=== PATIENT | female | born 1975 ===

== ENCOUNTER 2020-11-11 10:44 | Outpatient (REF) | payer OTHER, SELFPAY | END 2020-11-11 10:45 | disposition home or self-care (01) | LOC: HO.LAB 10:44 | PROVIDERS: PCP Family Medicine; Visit Provider Internal Medicine | DX: Z20.828 Contact with and (suspected) exposure to other viral communicable diseases (principal) | CPT/HCPCS: C9803; U0003 ==

== ENCOUNTER 2020-11-25 11:44 | Outpatient (REF) | payer OTHER, SELFPAY | END 2020-11-25 11:45 | disposition home or self-care (01) | LOC: HO.LAB 11:44 | PROVIDERS: PCP Family Medicine; Visit Provider Internal Medicine | DX: Z20.828 Contact with and (suspected) exposure to other viral communicable diseases (principal) | CPT/HCPCS: C9803; U0003 ==

== ENCOUNTER 2021-04-16 10:16 | Outpatient (REF) | payer OTHER, SELFPAY ==
--- NOTE | ~2021-04-16 | XR_ITS ---
EXAMINATION: XR LUMBOSACRAL SPINE WITH OBLIQUES CLINICAL INFORMATION: Low back pain. COMPARISON: Scoliosis series 03/31/2007 TECHNIQUE: Lumbar spine is imaged in 5 views: AP, lateral, lateral view coned to lumbosacral junction, and bilateral oblique. FINDINGS: There is normal lumbar segmentation with 5 [id number] lumbar vertebrae of normal height and normal lumbar lordosis. There is a dextrocurvature lumbar spine, also noted on prior radiographs 2006. There is no lumbar vertebral compression, spondylolisthesis, destructive process, or focal disc narrowing. The oblique views show no spondylolysis. There is mild inferior spurring left SI joint. Otherwise, SI joints and visualized sacrum are unremarkable. XR/XR lumbar spine 4V min IMPRESSION: 1. Dextrocurvature lumbar spine similar to prior radiographs 2006. 2. No lumbar vertebral compression, spondylolisthesis, spondylolysis, or disc narrowing. 3. Inferior spurring left SI joint. No joint narrowing or subchondral sclerosis.
== END 2021-04-16 10:17 | disposition home or self-care (01) ==
LOC: HO.XRAY 10:16
PROVIDERS: PCP Family Medicine; Visit Provider Family Medicine
DX: M54.5 Low back pain (principal)
CPT/HCPCS: 72110

== ENCOUNTER 2021-09-26 13:55 | Outpatient (REF) | payer OTHER, SELFPAY ==
--- NOTE | ~2021-09-26 | MM_ITS ---
EXAMINATION: MM SCREENING DIGITAL BREAST TOMOSYNTHESIS, BILATERAL CLINICAL INFORMATION: Screening. Asymptomatic. The lifetime risk of breast cancer based on the Tyrer-Cuzick Model is 23%. COMPARISON: Mammography: 08/23/2020, 02/16/2020, 08/17/2019, 02/13/2019, 08/11/2018, 08/03/2018 TECHNIQUE: Digital breast tomosynthesis is performed in both the craniocaudal and mediolateral oblique views along with computer-aided detection (CAD). Synthesized 2D images are generated from the tomosynthesis. FINDINGS: The breasts are heterogeneously dense, which may obscure small masses (ACR BI-RADS breast composition Category c). Parenchymal pattern is similar to prior studies. Breast tissue composition borders on average fibroglandular. No developing density or interval mass or architectural abnormality. No abnormal calcifications. Biopsy clip marker again noted anterior 1:00 left breast. The axilla and skin contours are unremarkable. MM/MM tomosynthesis screening BI IMPRESSION: No mammographic evidence of malignancy. ASSESSMENT: BI-RADS 1: Negative RECOMMENDATION: 1. Routine annual mammography screening. 2. The lifetime risk of breast cancer based on the Tyrer-Cuzick Model is 23%. Additional annual adjunct screening with breast MRI may be of benefit in women with a risk score of 20% or greater. This patient's information was entered into a reminder system with a target due date for their next mammogram.
== END 2021-09-26 13:56 | disposition home or self-care (01) ==
LOC: HO.MAMMO 13:55
PROVIDERS: PCP Family Medicine; Visit Provider Family Medicine
DX: Z12.31 Encounter for screening mammogram for malignant neoplasm of breast (principal)
CPT/HCPCS: 77063; 77067

== ENCOUNTER 2021-12-16 08:59 | Outpatient (REF) | payer OTHER, SELFPAY ==
[2021-12-16 09:40] LABS: COVID-19 Test Negative (Negative); IDNOW Serial# 16C4AD1C
== END 2021-12-16 09:00 | disposition home or self-care (01) ==
LOC: HO.LAB 08:59
PROVIDERS: Visit Provider Internal Medicine
DX: Z20.822 Contact with and (suspected) exposure to COVID-19 (principal)
CPT/HCPCS: 87635; C9803

== ENCOUNTER 2021-12-31 10:34 | Outpatient (REF) | payer OTHER, SELFPAY ==
[2021-12-31 11:02] LABS: COVID-19 Test Negative (Negative)
== END 2021-12-31 10:35 | disposition home or self-care (01) ==
LOC: HO.LAB 10:34
PROVIDERS: Visit Provider Internal Medicine
DX: Z20.822 Contact with and (suspected) exposure to COVID-19 (principal)
CPT/HCPCS: 87635; C9803

== ENCOUNTER 2022-05-05 10:45 | Outpatient (REF) | payer OTHER, SELFPAY ==
--- NOTE | ~2022-05-05 | XR_ITS ---
EXAMINATION: XR LEFT SHOULDER XR CERVICAL XR THORACIC SPINE CLINICAL INFORMATION: Pain. COMPARISON: None. TECHNIQUE: Left shoulder 4 views. Cervical spine 5 views. Thoracic spine 3 views. FINDINGS: Shoulder: There is no visible acute fracture, dislocation or subluxation. There is a lateral acromial enthesophyte. The glenohumeral joint space is maintained normal. No loose bodies seen. The soft tissues are normal. Dorsal Spine: There is mild S-shaped scoliosis of the dorsolumbar spine. There is mild loss of disc height at all thoracic disc levels. No visible acute fracture or dislocation seen. No lytic or sclerotic process seen. The paravertebral soft tissues are normal. Cervical Spine: There is normal cervical lordosis. There is loss of C5-C6 disc height with ventral and posterior spondylosis. The rest of the disc heights are maintained normal. There is mild uncovertebral hypertrophic changes on the left at C4-C5, C5-C6 and C6-C7 disc levels minimally narrowing the neural foramina with mild right C5-C6 narrowing of neural foramina as well. No aggressive lytic or sclerotic process seen. The prevertebral soft tissues are normal. XR/XR thoracic spine 3V IMPRESSION: Mild lateral acromial spurring. Otherwise, unremarkable left shoulder exam. Thoracal lumbar scoliosis without any acute fracture or dislocation. There are mild degenerative disc changes at all thoracic disc levels. Mild bilateral uncovertebral hypertrophic changes resulting in neural foraminal narrowing as described above. Mild degenerative disc changes with ventral spondylosis C5-C6 disc level.
--- NOTE | ~2022-05-05 | XR_ITS ---
EXAMINATION: XR LEFT SHOULDER XR CERVICAL XR THORACIC SPINE CLINICAL INFORMATION: Pain. COMPARISON: None. TECHNIQUE: Left shoulder 4 views. Cervical spine 5 views. Thoracic spine 3 views. FINDINGS: Shoulder: There is no visible acute fracture, dislocation or subluxation. There is a lateral acromial enthesophyte. The glenohumeral joint space is maintained normal. No loose bodies seen. The soft tissues are normal. Dorsal Spine: There is mild S-shaped scoliosis of the dorsolumbar spine. There is mild loss of disc height at all thoracic disc levels. No visible acute fracture or dislocation seen. No lytic or sclerotic process seen. The paravertebral soft tissues are normal. Cervical Spine: There is normal cervical lordosis. There is loss of C5-C6 disc height with ventral and posterior spondylosis. The rest of the disc heights are maintained normal. There is mild uncovertebral hypertrophic changes on the left at C4-C5, C5-C6 and C6-C7 disc levels minimally narrowing the neural foramina with mild right C5-C6 narrowing of neural foramina as well. No aggressive lytic or sclerotic process seen. The prevertebral soft tissues are normal. XR/XR cervical spine min 6V IMPRESSION: Mild lateral acromial spurring. Otherwise, unremarkable left shoulder exam. Thoracal lumbar scoliosis without any acute fracture or dislocation. There are mild degenerative disc changes at all thoracic disc levels. Mild bilateral uncovertebral hypertrophic changes resulting in neural foraminal narrowing as described above. Mild degenerative disc changes with ventral spondylosis C5-C6 disc level.
--- NOTE | ~2022-05-05 | XR_ITS ---
EXAMINATION: XR LEFT SHOULDER XR CERVICAL XR THORACIC SPINE CLINICAL INFORMATION: Pain. COMPARISON: None. TECHNIQUE: Left shoulder 4 views. Cervical spine 5 views. Thoracic spine 3 views. FINDINGS: Shoulder: There is no visible acute fracture, dislocation or subluxation. There is a lateral acromial enthesophyte. The glenohumeral joint space is maintained normal. No loose bodies seen. The soft tissues are normal. Dorsal Spine: There is mild S-shaped scoliosis of the dorsolumbar spine. There is mild loss of disc height at all thoracic disc levels. No visible acute fracture or dislocation seen. No lytic or sclerotic process seen. The paravertebral soft tissues are normal. Cervical Spine: There is normal cervical lordosis. There is loss of C5-C6 disc height with ventral and posterior spondylosis. The rest of the disc heights are maintained normal. There is mild uncovertebral hypertrophic changes on the left at C4-C5, C5-C6 and C6-C7 disc levels minimally narrowing the neural foramina with mild right C5-C6 narrowing of neural foramina as well. No aggressive lytic or sclerotic process seen. The prevertebral soft tissues are normal. XR/XR shoulder LT min 2V IMPRESSION: Mild lateral acromial spurring. Otherwise, unremarkable left shoulder exam. Thoracal lumbar scoliosis without any acute fracture or dislocation. There are mild degenerative disc changes at all thoracic disc levels. Mild bilateral uncovertebral hypertrophic changes resulting in neural foraminal narrowing as described above. Mild degenerative disc changes with ventral spondylosis C5-C6 disc level.
== END 2022-05-05 10:46 | disposition home or self-care (01) ==
LOC: HO.XRAY 10:45
PROVIDERS: Absent Provider Family Medicine; PCP Family Medicine; Visit Provider Emergency Medicine
DX: M25.512 Pain in left shoulder (principal); M54.2 Cervicalgia; M54.9 Dorsalgia, unspecified
CPT/HCPCS: 72052; 72072; 73030

== ENCOUNTER 2022-06-30 08:18 | Outpatient (REF) | payer OTHER, SELFPAY ==
[2022-06-30 08:59] LABS: Hematocrit 40.3 % (37.0-47.0); Hemoglobin 12.9 g/dl (12.0-16.0); Mean Corpuscular Hemoglobin 26.2 pg (27.0-33.0); Mean Corpuscular Volume 81.7 fL (80.0-98.0); Mean Platelet Volume 9.3 fL (9.4-12.3); Platelet Count 260 X10*3/uL (160-400); Red Blood Count 4.93 X10*6/uL (4.20-5.50); Red Cell Distribution Width 13.5 % (11.0-16.0); White Blood Count 6.4 X10*3/uL (4.8-10.8)
[2022-06-30 09:24] LABS: Alanine Aminotransferase 9 U/L (0-31); Albumin Level 4.3 g/dL (3.5-5.0); Alkaline Phosphatase 71 U/L (39-117); Anion Gap 12 (12-20); Aspartate Amino Transferase 15 U/L (5-31); Bilirubin Total 0.6 mg/dL (0.0-1.0); Blood Urea Nitrogen 16 mg/dL (9-16); Calcium 9.3 mg/dL (8.4-10.2); Carbon Dioxide 26 mmol/L (22-29); Chloride 106 mmol/L (96-108); Cholesterol 230 mg/dL; Estimated Glomerular Filt Rate > 60; Glucose Random 93 mg/dL (60-115); HDL Cholesterol 60 mg/dL; LDL Cholesterol Calculated 150 mg/dl; Potassium 4.9 mmol/L (3.3-5.1); Sodium 139 mmol/L (135-145); Total Protein 7.7 g/dL (6.5-8.0); Triglycerides 103 mg/dL
[2022-06-30 09:42] LABS: HIV AB/AG Nonreactive (Nonreactive); HIV Num 1 0.14 S/CO (0.00-0.99)
[2022-06-30 09:49] LABS: TSH reflex Free T4 1.93 uIU/mL (0.32-4.0); Vitamin D 25-OH Total 21.3 ng/mL (>30)
== END 2022-06-30 08:19 | disposition home or self-care (01) ==
LOC: HO.LAB 08:18
PROVIDERS: PCP Family Medicine; Visit Provider Family Medicine
DX: Z00.00 Encounter for general adult medical examination without abnormal findings (principal); Z11.4 Encounter for screening for human immunodeficiency virus [HIV]; E78.5 Hyperlipidemia, unspecified; M54.2 Cervicalgia; R87.820 Cervical low risk human papillomavirus (HPV) DNA test positive; Z87.898 Personal history of other specified conditions
CPT/HCPCS: 36415; 80053; 80061; 82306; 84443; 85027; 87389

== ENCOUNTER → 2022-08-24 14:58 | Outpatient (BNVA) | payer OTHER, SELFPAY | PROVIDERS: PCP Family Medicine; Visit Provider Nurse Practitioner Family | DX: Z01.818 Encounter for other preprocedural examination (principal) | CPT/HCPCS: 99202 ==

== ENCOUNTER 2022-09-28 14:12 | Outpatient (REF) | payer OTHER, SELFPAY ==
--- NOTE | ~2022-09-28 | MM_ITS ---
EXAMINATION: MM SCREENING DIGITAL BREAST TOMOSYNTHESIS, BILATERAL CLINICAL INFORMATION: Screening. Asymptomatic. The lifetime risk of breast cancer based on the Tyrer-Cuzick Model is 9%. COMPARISON: Mammography: 09/26/2021, 08/23/2020, 02/16/2020, 08/17/2019 TECHNIQUE: Digital breast tomosynthesis is performed in both the craniocaudal and mediolateral oblique views along with computer-aided detection (CAD). Synthesized 2D images are generated from the tomosynthesis. FINDINGS: The breasts are heterogeneously dense, which may obscure small masses (ACR BI-RADS breast composition Category c). Breast tissue composition borders on average fibroglandular. There are no significant masses, abnormal calcifications, or other abnormalities. Parenchymal pattern is similar to prior studies. No developing density or architectural abnormality. The axilla are unremarkable. MM/MM tomosynthesis screening BI IMPRESSION: No mammographic evidence of malignancy. ASSESSMENT: BI-RADS 1: Negative RECOMMENDATION: Routine annual mammography screening. This patient's information was entered into a reminder system with a target due date for their next mammogram.
== END 2022-09-28 14:13 | disposition home or self-care (01) ==
LOC: HO.MAMMO 14:12
PROVIDERS: PCP Family Medicine; Visit Provider Family Medicine
DX: Z12.31 Encounter for screening mammogram for malignant neoplasm of breast (principal)
CPT/HCPCS: 77063; 77067

== ENCOUNTER 2023-02-05 08:31 | Day surgery (SDC) | payer OTHER, SELFPAY ==
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
[2023-02-05 09:49] VITALS: BMI 26.2
[2023-02-05 09:49] LABS: UPreg QC Valid YES; Urine Pregnancy NEGATIVE (NEGATIVE)
--- NOTE | 2023-02-05 09:51 | MHC.SHP ---
Pre-Procedural Eval Section A Date of Service: 02/05/23 The patient is an INPATIENT: No The History & Physical has been completed within 30 days and I have reviewed it.: No Section B Chief Complaint: screening Details of Present Illness: Colon cancer screening Relevant Family History (Specify if Yes): No Relevant Social History: None Present Medications: see Short Stay Collaborative assessment Medical History: Significant History (Hyperlipidemia) History of Previous Operations: No relevant previous surgery Allergies: Allergies Allergy/AdvReac Type Severity Reaction Status Date / Time No Known Allergies Allergy Verified 02/02/23 16:28 Review of Systems Sugical H&P ROS: Negative: Constitution, Cardiovascular, Respiratory and Gastrointestinal Exam Surgical H&P Exam: Normal: Heart, Normal: Lungs, Normal: Extremities and Normal: Abdomen Plan Diagnosis/Plan: Unchanged I have reviewed the history and physical and performed a pertinent physical examination on my patient. No changes have occurred unless specified. Time Spent With Patient Time: Total time managing care of this patient today ____ minutes.
[2023-02-05 10:04] VITALS: BP 139/88; PULSE 79; RESP 16; TEMP 36.8; O2SAT 95
[2023-02-05] MEDS: Lactated Ringers 1,000 ML 100 ML IVCONT (10:05)
--- NOTE | 2023-02-05 10:33 | PM.OP ---
Brief Operative Note Date of Service: 02/05/23 Pre-op diagnosis: Colon cancer screening Post-op diagnosis: other (COLON POLYP, DIVERTICULOSIS) Procedure: COLONOSCOPY TILL CECUM WITH BIOPSY Surgeon: Stephanie Maya MD Anesthesia: MAC Was an Supervisor Sound Technician used for this Procedure?: Yes Supervisor Sound Technician: Patty Nixon Estimated blood loss (mL): 0 Pathology: other (a. colon polyp) Condition: stable Disposition: PACU
--- NOTE | 2023-02-05 10:34 | P.OP_ITS ---
Operative Note Operative Note Date of Service: 02/05/23 Narrative: COLONOSCOPY TILL CECUM WITH BIOPSIES Indication:? Colon cancer screening Endoscopist:? Stephanie Maya MD Anesthesia Provider:?Dr De La Garza Anesthesia type:?MAC Consent: Indications for the procedure and potential complications of bleeding, perforation, reaction to medications and missed diagnosis were discussed with the patient and informed consent was obtained. Instrument: Olympus PCF H 190 L variable stiffness pediatric colonoscope Monitoring: Vital signs and clinical assessment, intermittent blood pressure monitoring, continuous EKG monitoring, Pulse oximetry and Carbon Dioxide monitoring were done throughout the procedure. Please see anesthesia flowsheet. Colon withdrawl time was 10 minutes. Procedure: The patient was placed in the left lateral decubitis position and pre-procedure medications were administered. After a digital rectal examination of the ano-rectum, the video colonoscope was inserted into the rectum and advanced through the colon to the cecum. The colonoscope was slowly withdrawn in a retrograde panoramic fashion and the colon mucosa was carefully examined including a retroflexed view of the rectum. Findings and interventions are described below. Procedure Difficulty: Without difficulty Findings: Terminal Ileum: Not evaluated Cecum: Normal Ascending Colon: Normal Transverse Colon: Normal Descending Colon: Normal Sigmoid Colon: Moderate diverticulosis Rectum: A 3-4 mm diminutive appearing polyp - removed with a cold biopsy Ano-rectum: Small internal hemorrhoids Colon preparation: Excellent Impression and Post Procedure Diagnosis: Colonoscopy Findings: One small polyp removed Moderate diverticulosis seen in the sigmoid colon Plan: Await pathology results Patient has an appointment on 02/19/23 in the GI Clinic with Matilda Sommers FNP- [facility]. Repeat Colonoscopy interval based on path results - in 5 years if polyps are adenomatous and 10 years if polyps are hyperplastic. Above findings were reviewed with the patient and colon polyps and diverticulosis handouts were given in the discharge area
[2023-02-05 11:10] VITALS: BP 113/69; PULSE 65; RESP 17; TEMP 36.2; O2SAT 100
[2023-02-05 11:27] VITALS: BP 128/76; PULSE 61; RESP 15; TEMP 36.6; O2SAT 100
== END 2023-02-05 12:23 | disposition home or self-care (01) ==
PROVIDERS: Nurse Practitioner; PCP Family Medicine; Visit Provider Internal Medicine Gastroenterology
PROC: 0DJD8ZZ Inspection of Lower Intestinal Tract, Via Natural or Artificial Opening Endoscopic (ICD-10-PCS; CPT 45378; principal; 2023-02-05 10:10)
DX: Z12.11 Encounter for screening for malignant neoplasm of colon (principal); K62.1 Rectal polyp; K57.30 Diverticulosis of large intestine without perforation or abscess without bleeding; K64.8 Other hemorrhoids; E78.5 Hyperlipidemia, unspecified; Z79.899 Other long term (current) drug therapy
CPT/HCPCS: 45380; 81025; 88305

== ENCOUNTER 2023-08-04 08:26 | Outpatient (REF) | payer OTHER, SELFPAY ==
[2023-08-04 08:58] LABS: MANUAL DIFF FLAG NO
[2023-08-04 09:35] LABS: Basophils Percent Auto 0.7 % (0-2); Eosinophils Absolute Auto 0.1 X10*3/uL (0.0-0.4); Eosinophils Percent Auto 1.7 % (0-4); Hemoglobin 12.6 g/dl (12.0-16.0); Imm Gran Abs Auto 0.01 X10*3/uL (0.00-0.03); Imm Gran Pct Auto 0.2 % (0.0-0.4); Lymphocytes Absolute Auto 1.6 X10*3/uL (1.2-4.9); Lymphocytes Percent Auto 28.6 % (20-40); Mean Corpuscular HGB Conc 31.5 g/dl (31.0-35.0); Mean Corpuscular Hemoglobin 26.3 pg (27.0-33.0); Mean Corpuscular Volume 83.5 fL (80.0-98.0); Mean Platelet Volume 9.3 fL (9.4-12.3); Monocytes Absolute Auto 0.3 X10*3/uL (0.1-1.2); Monocytes Percent Auto 5.8 % (2-11); Neutrophils Absolute Auto 3.6 x10*3/uL (2.0-8.3); Platelet Count 266 X10*3/uL (160-400); Red Blood Count 4.79 X10*6/uL (4.20-5.50); White Blood Count 5.7 X10*3/uL (4.8-10.8)
[2023-08-04 10:39] LABS: Alanine Aminotransferase 11 U/L (0-31); Albumin Level 4.1 g/dL (3.5-5.0); Alkaline Phosphatase 82 U/L (39-117); Anion Gap 9 (12-20); Aspartate Amino Transferase 16 U/L (5-31); Bilirubin Direct 0.1 mg/dL (0.0-0.5); Bilirubin Total 0.4 mg/dL (0.0-1.0); Blood Urea Nitrogen 15 mg/dL (9-16); Calcium 9.7 mg/dL (8.4-10.2); Carbon Dioxide 29 mmol/L (22-29); Chloride 106 mmol/L (96-108); Cholesterol 238 mg/dL (<200); Estimated Glomerular Filt Rate > 60; Glucose Random 91 mg/dL (60-115); HDL Cholesterol 61 mg/dL (>40); LDL Cholesterol Calculated 159 mg/dL (<100); Potassium 4.5 mmol/L (3.3-5.1); Sodium 139 mmol/L (135-145); TSH reflex Free T4 1.22 uIU/mL (0.32-4.0); Total Protein 7.6 g/dL (6.5-8.0); Triglycerides 90 mg/dL (<150)
[2023-08-04 10:41] LABS: ~HepC Num1 0.08 S/CO (0.00-0.79); ~Hepatitis C Antibody Nonreactive (Nonreactive)
[2023-08-09 00:54] LABS: VITAMIN D (1,25 OH) D3 58 pg/mL; Vit D (1,25-Dihydroxy) Total 58 pg/mL (18-72); Vitamin D (1,25 OH) D2 <8 pg/mL
== END 2023-08-04 08:27 | disposition home or self-care (01) ==
LOC: HO.LAB 08:26
PROVIDERS: PCP Family Medicine; Visit Provider Family Medicine
DX: R53.83 Other fatigue (principal); E78.5 Hyperlipidemia, unspecified
CPT/HCPCS: 36415; 80048; 80061; 80076; 82652; 84443; 85025; 86803

== ENCOUNTER 2023-09-30 07:50 | Outpatient (REF) | payer OTHER, SELFPAY ==
--- NOTE | ~2023-09-30 | MM_ITS ---
EXAMINATION: MM SCREENING DIGITAL BREAST TOMOSYNTHESIS, BILATERAL CLINICAL INFORMATION: Screening. Asymptomatic. COMPARISON: Mammography: This study is compared with prior exams dating back to 2019. TECHNIQUE: Digital breast tomosynthesis is performed in both the craniocaudal and mediolateral oblique views along with computer-aided detection (CAD). Synthesized 2D images are generated from the tomosynthesis. FINDINGS: The breasts are heterogeneously dense, which may obscure small masses (ACR BI-RADS breast composition Category c). There are no significant masses, abnormal calcifications, or other abnormalities. There is a tissue marker in the upper outer quadrant of the left breast from prior benign percutaneous biopsy. MM/MM tomosynthesis screening BI IMPRESSION: No mammographic evidence of malignancy. ASSESSMENT: BI-RADS BI-RADS 2 - Benign Findings RECOMMENDATION: Routine annual mammography screening. 1 year F/U This examination should not preclude the clinical evaluation of a suspicious palpable abnormality. This patient's information was entered into a reminder system with a target due date for their next mammogram.
== END 2023-09-30 07:51 | disposition home or self-care (01) ==
LOC: HO.MAMMO 07:50
PROVIDERS: PCP Family Medicine; Visit Provider Family Medicine
DX: Z12.31 Encounter for screening mammogram for malignant neoplasm of breast (principal)
CPT/HCPCS: 77063; 77067

== ENCOUNTER → 2023-09-30 08:30 | Outpatient (BNV) | payer OTHER, SELFPAY | PROVIDERS: PCP Family Medicine; Visit Provider Radiology Diagnostic Radiology | DX: Z12.31 Encounter for screening mammogram for malignant neoplasm of breast (principal) | CPT/HCPCS: 77063; 77067 ==

== ENCOUNTER 2024-02-17 11:09 | Outpatient (REF) | payer OTHER, SELFPAY ==
[2024-02-19 23:04] LABS: TS Negative Control Passed; TS Panel A 0; TS Panel B 0; TS Positive Control Passed; TSpotTB Negative (Negative)
== END 2024-02-17 11:10 | disposition home or self-care (01) ==
LOC: HO.HHCL 11:09
PROVIDERS: Visit Provider Family Medicine
DX: Z11.1 Encounter for screening for respiratory tuberculosis (principal)
CPT/HCPCS: 36415; 86481

== ENCOUNTER 2024-07-21 08:04 | Emergency (ER) | payer OTHER, SELFPAY ==
--- NOTE | ~2024-07-21 | XR_ITS ---
EXAMINATION: XR CHEST CLINICAL INFORMATION: Dizziness. COMPARISON: None available. TECHNIQUE: Frontal view of the chest was obtained. FINDINGS: No focal consolidation, pleural effusion or pneumothorax. Normal appearance of the cardiomediastinal silhouette. Mild S-shaped scoliosis of the thoracolumbar spine with chronic appearing deformity of the right-sided rib cage. No acute osseous findings. XR/XR chest 1V IMPRESSION: No acute cardiopulmonary findings. Electronically signed by: Stefani Willoughby MD 07/21/2024 08:53 AM EDT
[2024-07-21 08:12] VITALS: BP 174/63; PULSE 66; RESP 16; TEMP 36.2; O2SAT 100; BMI 28.3
--- NOTE | 2024-07-21 08:15 | ECG_ITS ---
Test Reason : dizziness Blood Pressure : / mmHG Vent. Rate : 063 BPM Atrial Rate : 063 BPM P-R Int : 144 ms QRS Dur : 070 ms QT Int : 396 ms P-R-T Axes : 066 041 045 degrees QTc Int : 405 ms Normal sinus rhythm Normal ECG No previous ECGs available Referred By: Generic ED Physician Electronically Signed By:KAROL GATES
[2024-07-21 08:29] LABS: MANUAL DIFF FLAG NO
[2024-07-21 08:30] LABS: Basophils Absolute Auto 0.1 X10*3/uL (0.0-0.2); Basophils Percent Auto 0.7 % (0-2); Eosinophils Percent Auto 0.6 % (0-4); Hematocrit 40.4 % (37.0-47.0); Hemoglobin 13.1 g/dl (12.0-16.0); Imm Gran Abs Auto 0.02 X10*3/uL (0.00-0.03); Imm Gran Pct Auto 0.3 % (0.0-0.4); Lymphocytes Absolute Auto 1.1 X10*3/uL (1.2-4.9); Lymphocytes Percent Auto 14.4 % (20-40); Mean Corpuscular HGB Conc 32.4 g/dl (31.0-35.0); Mean Corpuscular Hemoglobin 26.8 pg (27.0-33.0); Mean Corpuscular Volume 82.8 fL (80.0-98.0); Mean Platelet Volume 8.9 fL (9.4-12.3); Monocytes Absolute Auto 0.3 X10*3/uL (0.1-1.2); Monocytes Percent Auto 3.7 % (2-11); Neutrophils Absolute Auto 5.8 x10*3/uL (2.0-8.3); Neutrophils Percent Auto 80.3 % (45-73); Platelet Count 270 X10*3/uL (160-400); Red Blood Count 4.88 X10*6/uL (4.20-5.50); Red Cell Distribution Width 13.5 % (11.0-16.0); White Blood Count 7.3 X10*3/uL (4.8-10.8)
[2024-07-21 08:59] LABS: Alanine Aminotransferase 15 U/L (0-31); Albumin Level 4.2 g/dL (3.5-5.0); Alkaline Phosphatase 79 U/L (39-117); Anion Gap 11 (12-20); Aspartate Amino Transferase 17 U/L (5-31); Bilirubin Total 0.4 mg/dL (0.0-1.0); Blood Urea Nitrogen 14 mg/dL (9-16); Calcium 9.4 mg/dL (8.4-10.2); Carbon Dioxide 24 mmol/L (22-29); Chloride 108 mmol/L (96-108); Creatinine Clr Calc Pharmacy 94.4; Estimated Glomerular Filt Rate > 60; Glucose Random 112 mg/dL (60-115); Potassium 4.4 mmol/L (3.3-5.1); Sodium 139 mmol/L (135-145); Total Protein 7.7 g/dL (6.5-8.0)
[2024-07-21 09:06] LABS: Troponin-I High Sensitivity 3.5 ng/L (<3.5-17.0)
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
[2024-07-21 09:47] VITALS: BP 161/80; PULSE 59
[2024-07-21 10:00] VITALS: BP 161/80; PULSE 59; RESP 18; TEMP 36.9; O2SAT 99
[2024-07-21 10:05] VITALS: BP 158/81; BP 166/81; PULSE 66
[2024-07-21] MEDS: Lactated Ringers 1,000 ML 999 ML IV (10:54)
[2024-07-21 11:38] LABS: COVID-19 Test Negative (Negative); IDNOW Serial# 152EDE1D
[2024-07-21 11:51] VITALS: BP 142/73; PULSE 62; RESP 16; TEMP 36.1; O2SAT 100
[2024-07-21 11:57] VITALS: BP 142/73; PULSE 62; RESP 16; TEMP 36.1; O2SAT 100
== END 2024-07-21 11:57 | disposition home or self-care (01) ==
PROVIDERS: Emergency Provider Emergency Medicine; PCP Family Medicine
DX: R42 Dizziness and giddiness (principal)
CPT/HCPCS: 36415; 71045; 80053; 84484; 85025; 87635; 93005; 96360; 99284; J7120

== ENCOUNTER 2024-10-05 07:34 | Outpatient (REF) | payer OTHER, SELFPAY ==
--- NOTE | ~2024-10-05 | MM_ITS ---
EXAMINATION: MM SCREENING DIGITAL BREAST TOMOSYNTHESIS, BILATERAL CLINICAL INFORMATION: Screening. Asymptomatic. COMPARISON: Mammography: Comparison is made with available priors TECHNIQUE: Digital breast mammography with tomosynthesis is performed in both the craniocaudal and mediolateral oblique views along with computer-aided detection (CAD). FINDINGS: The breasts are heterogeneously dense, which may obscure small masses (ACR BI-RADS breast composition Category c). Right: There are no significant masses, abnormal calcifications, or other abnormalities. Left: Asymmetry superior breast posterior depth on MLO view. Asymmetry medial breast middle depth on CC view. No suspicious calcifications or other abnormal findings. MM/MM tomosynthesis screening BI IMPRESSION: Additional imaging is recommended ASSESSMENT: BI-RADS BI-RADS 0 - Incomplete: Needs additional Imaging. RECOMMENDATION: 1. Additional views of the left breast 2. Targeted ultrasound if warranted after review of the additional views. 3. Radiology department staff will contact the patient for additional imaging. Additional Imaging required This examination should not preclude the clinical evaluation of a suspicious palpable abnormality. This patient's information was entered into a reminder system with a target due date for their next mammogram. Electronically signed by: Arely Chery DO 10/13/2024 04:07 PM TRAV
== END 2024-10-05 07:35 | disposition home or self-care (01) ==
LOC: HO.MAMMO 07:34
PROVIDERS: PCP Family Medicine; Visit Provider Family Medicine
DX: Z12.31 Encounter for screening mammogram for malignant neoplasm of breast (principal)
CPT/HCPCS: 77063; 77067

== ENCOUNTER → 2024-10-05 08:00 | Outpatient (BNV) | payer OTHER, SELFPAY | PROVIDERS: PCP Family Medicine; Visit Provider Internal Medicine | DX: Z12.31 Encounter for screening mammogram for malignant neoplasm of breast (principal) | CPT/HCPCS: 77063; 77067 ==

== ENCOUNTER 2024-10-20 09:45 | Outpatient (REF) | payer OTHER, SELFPAY ==
--- NOTE | ~2024-10-20 | MM_ITS ---
EXAMINATION: MM DIAGNOSTIC DIGITAL BREAST TOMOSYNTHESIS, LEFT Limited left breast ultrasound. CLINICAL INFORMATION: Call back from screening for left breast asymmetries. COMPARISON: Mammography: Comparison is made with available prior examinations. TECHNIQUE: Digital breast tomosynthesis is performed in both the craniocaudal and mediolateral oblique views along with computer-aided detection (CAD). Synthesized 2D images are generated from the tomosynthesis. Limited left breast ultrasound. FINDINGS: There are scattered areas of fibroglandular density (ACR BI-RADS breast composition Category b). Previously seen asymmetry in the superior left breast on MLO view partially effaces on additional imaging projections. Asymmetry medial breast on CC view persists on additional imaging projections. There are no other significant masses, abnormal calcifications, or other abnormalities. Targeted color Doppler ultrasound of the left breast scanning in the upper inner quadrant demonstrates 2 simple cysts the larger 11:00 2 cm from the nipple measuring 7 x 3 x 3 mm 2 other subcentimeter cysts are simple and benign the 7 mm cyst is a questionable correlate for the asymmetry in the medial breast on CC view. Targeted color Doppler ultrasound scanning in the upper central breast and upper outer quadrant in straight normal fibroglandular breast tissue. There is no sonographic abnormality to correlate with the asymmetry seen on mammography. MM/MM tomosynthesis diagnostic LT IMPRESSION: 1. Simple cysts at 11:00. Benign. 2. Asymmetry medial left breast on CC view and superior left breast MLO view without definite sonographic correlates. Recommend 6 month follow-up left breast mammogram for further evaluation of stability. ASSESSMENT: BI-RADS BI-RADS 3 - Probably benign finding(s) - 6 month follow-up suggested RECOMMENDATION: 6 Month F/U Results were provided to the patient at time of visit by the technologist. This patient's information was entered into a reminder system with a target due date for their next mammogram. Electronically signed by: Arely Chery DO 10/20/2024 10:32 AM TRAV
== END 2024-10-20 09:46 | disposition home or self-care (01) ==
LOC: HO.MAMMO 09:45
PROVIDERS: PCP Family Medicine; Visit Provider Family Medicine
DX: N64.89 Other specified disorders of breast (principal)
CPT/HCPCS: 76642; 77061; 77065

== ENCOUNTER → 2024-10-20 09:45 | Outpatient (BNV) | payer OTHER, SELFPAY | PROVIDERS: PCP Family Medicine; Visit Provider Internal Medicine | DX: N60.02 Solitary cyst of left breast (principal); R92.322 Mammographic fibroglandular density, left breast | CPT/HCPCS: 76642; 77061; 77065 ==

== ENCOUNTER 2024-12-29 14:10 | Outpatient (REF) | payer OTHER, SELFPAY ==
--- OUTSIDE RECORDS SUMMARY | 2024-12-29 14:14 | XMS_ITS | Encounter Summary ---
Author Organization [facility] Address [address] [place] [address] Care Team Providers Care Pharmacist Critical Care Name Role Phone Joann Bray MD Primary Care Provider [phone] Stephanie Maya MD Unavailable [phone] Encounter Details Date Type Department Care Team (Latest Contact Info) Description 07/27/2019 Abstract [facility] CONVERSIONS Dental, Provider, DDS Social History Tobacco Use Types Packs/Day Years Used Date Smoking Tobacco: Never Assessed Comments Unknown Sex and Gender Information Value Date Recorded Sex Assigned at Female 09/28/2022 10:19 AM EDT Legal Sex Female 10:19 AM EDT Gender Identity Female 09/28/2022 10:19 AM EDT Sexual Orientation Straight 09/28/2022 10 :19 AM EDT documented as of this encounter Plan of Treatment Not on file documented as of this encounter Visit Diagnoses Not on filedocumented in this encounter Care Teams Pharmacist Critical Care Relationship Specialty Start Date End Date Joann Bray MD [address] [place] [id number] PCP - General Family Medicine 11/29/18 Stephanie Maya MD [address] [place] [address] [address] [place], [place] [id number] Gastroenterology 11/15/24 documented as of this encounter
--- OUTSIDE RECORDS SUMMARY | 2024-12-29 14:14 | XMS_ITS | Clinical Summary ---
Author Organization [employer] Address [address] [place] [address] Care Team Providers Care Sales Engagement Executive Name Role Phone Joann Bray MD Primary Care Provider [phone] Stephanie Maya MD Unavailable [phone] Allergies No known active allergies Medications chlorhexidine (Peridex) 0.12 % solutionIndicat ions:Gingival and periodontal disease Use 15 mL in the mouth or throat if needed for wound care. 025 Discontinued(Me d list cleanup (will not trigger notification to Pharmacy)) Active Problems Problem Noted Date Diagnosed Date Overweight 12/29/2024 Overview (12/29/2024): Discussed weight, diet, exercise with patient in relation to health conditions. Used motivational interviewing to illicit change talk and established initial goals with patient. Assessment & Plan (12/29/2024 9:35 AM EST): Discussed weight, diet, exercise with patient in relation to health conditions. Used motivational interviewing to illicit change talk and established initial goals with patient. Exercise counseling 12/29/2024 Assessment & Plan (12/29/2024 9:35 AM EST): Exercise Recommendations: At least 150 minutes of moderate-intensity physical activity per week, or an equivalent combination of moderate- and vigorous-intensity activity Dietary counseling 12/29/2024 Assessment & Plan (12/29/2024 9:35 AM EST): Dietary Recommendations: Fruits, vegetables, whole grains, protein foods, and fat-free or low-fat dairy products are healthy choices. Eat different types of protein foods in your diet. This can include seafood, lean meats, poultry, beans, peas, lentils, nuts, seeds, soy products, and eggs. Limit foods and beverages higher in added sugars, saturated fat, and sodium. Advanced periodontitis 05/10/2024 Missing teeth, acquired 05/10/2024 Left shoulder pain 07/28/2023 Overview (07/28/2023): Referral to PT 07/28/2023. Assessment & Plan (07/28/2023 10:57 AM EDT): Referral to PT 07/28/2023 Abnormal mammogram 07/26/2023 Overview (12/29/2024): -09/30/23 BI-RADS BI-RADS 2, Benign Findings, repeat annually. -09/28/22 -09/26/2021 BIRADS negative. -08/23/2020 BiRADs recommend annual mammo -02/16/2020 mammo and US likely benign, repeat 6 months - 08/17 mammo Continued probable benign ultrasound appearance of a mildly complex right breast cyst. -02/13/19: R BREAST US/MAMMO: The probable benign grouping of cysts mid lower outer right breast are stable to borderline decreased. No interval suspicious changes. BI-RADS 3: Probably Benign -04/24/15: L BREAST SURGERY: Fibrocystic changes including apocrine metaplasia, microcysts, moderate ductal hyperplasia, periductal chronic inflammation, fibrosis and associated microcalcifications. -11/13/24: BI-RADS BI-RADS 3 Simple cysts at 11:00. Benign. Asymmetry medial left breast on CC view and superior left breast MLO view without definite sonographic correlates. Recommend 6 month follow-up left breast mammogram for further evaluation of stability due 04/2024 -10/20/24. Simple cysts at 11:00. Benign. Asymmetry medial left breast on CC view and superior left breast MLO view without definite sonographic correlates. Recommend 6 month follow-up left breast mammogram for further evaluation of stability. Assessment & Plan (12/29/2024 9:34 AM EST): -09/30/23 BI-RADS BI-RADS 2, Benign Findings, repeat annually. -09/28/22 -09/26/2021 BIRADS negative. -08/23/2020 BiRADs recommend annual mammo -02/16/2020 mammo and US likely benign, repeat 6 months - 08/17 mammo Continued probable benign ultrasound appearance of a mildly complex right breast cyst. -02/13/19: R BREAST US/MAMMO: The probable benign grouping of cysts mid lower outer right breast are stable to borderline decreased. No interval suspicious changes. BI-RADS 3: Probably Benign -04/24/15: L BREAST SURGERY: Fibrocystic changes including apocrine metaplasia, microcysts, moderate ductal hyperplasia, periductal chronic inflammation, fibrosis and associated microcalcifications. -11/13/24: BI-RADS BI-RADS 3 Simple cysts at 11:00. Benign. Asymmetry medial left breast on CC view and superior left breast MLO view without definite sonographic correlates. Recommend 6 month follow-up left breast mammogram for further evaluation of stability due 04/2024 -10/20/24. Simple cysts at 11:00. Benign. Asymmetry medial left breast on CC view and superior left breast MLO view without definite sonographic correlates. Recommend 6 month follow-up left breast mammogram for further evaluation of stability. Assessment & Plan (09/18/2024 9:48 AM EDT): -09/30/23 BI-RADS BI-RADS 2, Benign Findings, repeat annually. -09/28/22 -09/26/2021 BIRADS negative. -08/23/2020 BiRADs recommend annual mammo -02/16/2020 mammo and US likely benign, repeat 6 months - 08/17 mammo Continued probable benign ultrasound appearance of a mildly complex right breast cyst. -02/13/19: R BREAST US/MAMMO: The probable benign grouping of cysts mid lower outer right breast are stable to borderline decreased. No interval suspicious changes. BI-RADS 3: Probably Benign -04/24/15: L BREAST SURGERY: Fibrocystic changes including apocrine metaplasia, microcysts, moderate ductal hyperplasia, periductal chronic inflammation, fibrosis and associated microcalcifications. Assessment & Plan (07/26/2023 10:51 AM EDT): -09/26/2021 BIRADS negative. -08/23/2020 BiRADs recommend annual mammo -02/16/2020 mammo and US likely benign, repeat 6 months - 08/17 mammo Continued probable benign ultrasound appearance of a mildly complex right breast cyst. -02/13/19: R BREAST US/MAMMO: The probable benign grouping of cysts mid lower outer right breast are stable to borderline decreased. No interval suspicious changes. BI-RADS 3: Probably Benign -04/24/15: L BREAST SURGERY: Fibrocystic changes including apocrine metaplasia, microcysts, moderate ductal hyperplasia, periductal chronic inflammation, fibrosis and associated microcalcifications. Hx of abnormal cervical Pap smear 07/26/2023 Overview (12/29/2024): -Hx ELEANOR 1 2008 with subsequent normal paps until 2014 - ASCUS with negative HPV 10/2015. -ASCUS with negative HPV 12/21/18 -cotesting NILM HPV negative 10/2019, next due in 5 years, 10/2024 -Pap with HPV testing done 09/18/24 STI testing offered, PreP offered Assessment & Plan (12/29/2024 9:34 AM EST): -Hx ELEANOR 1 2008 with subsequent normal paps until 2014 - ASCUS with negative HPV 10/2015. -ASCUS with negative HPV 12/21/18 -cotesting NILM HPV negative 10/2019, next due in 5 years, 10/2024 -Pap with HPV testing done 09/18/24 STI testing offered, PreP offered Assessment & Plan (09/18/2024 9:47 AM EDT): -Hx ELEANOR 1 2008 with subsequent normal paps until 2014 - ASCUS with negative HPV 10/2015. -ASCUS with negative HPV 12/21/18 -cotesting NILM HPV negative 10/2019, next due in 5 years, 10/2024 -Will schedule appt. for PAP in 2 months 09/18/24 Assessment & Plan (07/26/2023 10:52 AM EDT): -Hx ELEANOR 1 2008 with subsequent normal paps until 2014 - ASCUS with negative HPV 10/2015. -ASCUS with negative HPV 11/18/18 -cotesting NILM HPV negative 10/2019, next due in 5 years, 10/2025 Other specified health status 07/26/2023 Overview (12/29/2024): -next comprehensive annual evaluation due after 09/18/25 -followed by Dr. Grey Lance of [facility] -dental home is [facility] -health care proxy given and filed 09/18/24 Assessment & Plan (09/18/2024 9:47 AM EDT): -next comprehensive annual evaluation due after 07/28/2024 -followed by Dr. Grey Lance of [facility] -dental home is [facility] -health care proxy given and filed 09/18/24 Assessment & Plan (07/28/2023 10:55 AM EDT): -next physical exam due after -eye care facilitated by [facility] with Dr Lindsay -dental home is [facility] Dyslipidemia 04/17/2013 Overview (12/29/2024): Lab Results Component Value Date CHOL 238 (H) 08/04/2023 TRIG 90 08/04/2023 HDL 61 08/04/2023 LDLCHOLCAL 159 (H) 08/04/2023 -continue lifestyle modification -ordered repeat FLP 09/18/24 -ordered repeat FLP and HFP 12/29/24 Assessment & Plan (12/29/2024 9:33 AM EST): Lab Results Component Value Date CHOL 238 (H) 08/04/2023 TRIG 90 08/04/2023 HDL 61 08/04/2023 LDLCHOLCAL 159 (H) 08/04/2023 -continue lifestyle modification -ordered repeat FLP 09/18/24 -ordered repeat FLP and HFP 12/29/24 Assessment & Plan (09/18/2024 9:48 AM EDT): Lab Results Component Value Date CHOL 238 (H) 08/04/2023 TRIG 90 08/04/2023 HDL 61 08/04/2023 LDLCHOLCAL 159 (H) 08/04/2023 -continue lifestyle modification -ordered repeat FLP 09/18/24 Assessment & Plan (07/26/2023 10:51 AM EDT): Lab Results Component Value Date CHOLESTEROL 222 (H) 03/21/2021 LDLCHOL 136 (H) 03/21/2021 HDLCHOL 64 03/21/2021 CHOLHDLRAT 3.5 03/21/2021 -continue lifestyle modifications Resolved Problems Problem Noted Date Diagnosed Date Resolved Date Dental calculus 05/10/2024 11/15/2024 Gingival bleeding 05/10/2024 11/15/2024 Acute gingival inflammation 05/10/2024 11/15/2024 Localized gingival recession 05/10/2024 11/15/2024 Halitosis 05/10/2024 11/15/2024 Spasm of cervical paraspinous muscle 03/15/2018 11/15/2024 Encounters Date Type Department Care Team Description 12/29/2024 9:00 AM EST Procedure Visit [facility] [address] [place] [id number] Joann Bray MD Hx of abnormal cervical Pap smear (Primary Dx); Abnormal mammogram; Dyslipidemia; Dietary counseling; Exercise counseling; Overweight; Cervical cancer screening; Routine screening for STI (sexually transmitted infection) 12/29/2024 Travel 12/28/2024 Telephone [facility] [address] [place] [address] Carmen Scott MA Chart Prep 10/05/2024 Orders Only [facility] [address] [place] [id number] Joann Bray MD Abnormal mammogram (Primary Dx) from Last 3 Months Immunizations Name Administration Dates Next Due Influenza Injectable Quadriv alant Preservative Free IIV4 MDCK 09/18/2020 Influenza injectable quadriv alent preservative free 11/03/2019,11/18/2018,11/08/2015 Influenza, IIV3, injectable 10/08/2014 Tdap 10/08/2014 Family History Medical History Relation Name Comments Hyperlipidemia Mother Hypertension Mother Relation Name Status Comments Mother Social History Tobacco Use Types Packs/Day Years Used Date Smoking Tobacco: Never Smokeless Tobacco: Never Tobacco Cessation:Counseling Given: Not Answered Depression Answer Date Recorded Patient Health Questionnaire-9 Score 1 09/18/2024 Patient Health Questionnaire-9 Score 1 09/18/2024 Last PHQ-9: Questionnaire Data Not on file 1 Housing Stability Answer Date Recorded What is your housing situation today? I have nemo gatica 09/18/[address] you li ve. Do you have problems with any of the following? Mold 09/18/2024 Food Insecurity Answer Date Recorded Within the past 12 months, y ou worried that your food would run out before you got money to buy more: Never True 09/18/2024 Within the past 12 months,th e food you bought just didn't last and you didn't have enough money to get more: Never True Transportation Answer Date Recorded In the past 12 months, has l ack of transportation kept you from medical appts, meetings, work or from getting things needed for daily living? No 09/18/2024 Utilities Answer Date Recorded In the past 12 months, has t he electric, gas, oil or water company threatened to shut off services in your home? No 09/18/2024 Depression Answer Date Recorded Patient Health Questionnaire-2 Score 0 09/18/2024 Internet Access Answer Date Recorded Internet Access Q1 Yes 09/18/2024 Internet Access Q2 Not on file 09/18/2024 Comments Unknown Sex and Gender Information Value Date Recorded Sex Assigned at Female 09/28/2022 10:19 AM EDT Legal Sex Female 10:19 AM EDT Gender Identity Female 09/28/2022 10:19 AM EDT Sexual Orientation Straight 09/28/2022 10 :19 AM EDT Last Filed Vital Signs Vital Sign Reading Time Taken Comments Blood Pressure 130/82 12/29/2024 9:08 AM EST Pulse 70 12/29/2024 9:08 AM EST Temperature 37.2 ??C (98.9 ??F) 12/29/2024 9:08 AM ES T Respiratory Rate 18 12/29/2024 9:08 AM EST Oxygen Saturation 98% 12/29/2024 9:08 AM EST Inhaled Oxygen Concentration - - Weight 73.8 kg (162 lb 12.8 oz) 12/29/2024 9:08 AM EST Height 160 cm (5' 3 ) 12/29/2024 9:08 AM EST Body Mass Index 28.84 12/29/2024 9:08 AM EST Plan of Treatment Health Maintenance Due Date Last Done Comments CT Colonography 1975 FIT DNA/Cologuard 1975 FIT 1975 FOBT 1975 Sigmoidoscopy 1975 Zoster Vaccines (1 of 2) 2023 Cervical Cancer Screening 11/03/2024 HPV/Cotest 11/03/2024 11/18/2018 Pap Smear 11/03/2024 11/03/2019 Dental Oral Exam 11/10/2024 05/10/2024, , 07/14/2019, Additional history exists Dental Prophylaxis 11/10/2024 05/10/2024, 0 04/20/2022, 07/26/2019, Additional history exists Diagnostic Breast Imaging 04/19/20252023, 10/20/2024, 08/17/2019 Dental X-Ray: Bitewings 05/11/2025 05/10/20 24, 04/20/2022, 07/14/2019, Additional history exists Influenza Vaccine (#1) 2025 0, 11/03/2019, 11/18/2018, Additional history exists Postponed from 07/30/2024 (Patient Refused) Alcohol/Substance Use Screening 09/18/2025 09/18/2024 COVID-19 Vaccine ( season) 2025 03/07/2021, 02/07/2021 Postponed from 07/30/2024 (Patient Refused) Depression Screening 09/18/2025 09/18/2024, 09/18/20 24 SDOH Screening 09/18/2025 09/18/2024 DTaP/Tdap/Td Vaccines (2 - Td or Tdap) 12/29/2025 10/08/2014 Postponed from 10/08/2024 (Patient Refused) Family Planning (PISQ) 12/29/2025 12/29/2024 Pneumococcal Vaccine: 50+ Years (1 of 1 - PCV) 12/29/2025 Postponed from 2023 (Patient Refused) Tobacco Screening 12/29/2025 12/29/2024 Dental X-Ray: Full Mouth 05/11/2027 024, 07/14/2019, 02/06/2014 Colonoscopy 02/08/2033 02/08/2023 Colorectal Cancer Screening 02/08/2033 RSV Patients and Patients Aged 60 years or older (1 - 1-dose 75+ series) 2048 HIV Screening Completed 06/30/2022, 12/29/2019 Hepatitis C Screening Completed 08/04/2023 HIB Vaccines Aged Out No longer eligi ble based on patient's age to complete this topic HPV Vaccines Aged Out No longer eligi ble based on patient's age to complete this topic Hepatitis A Vaccines Aged Out No long er eligible based on patient's age to complete this topic Hepatitis B Vaccines Discontinued IPV Vaccines Aged Out No longer eligi ble based on patient's age to complete this topic Meningococcal Vaccine Aged Out No rainer chanell eligible based on patient's age to complete this topic RSV under 20 months Aged Out No longe r eligible based on patient's age to complete this topic Rotavirus Vaccines Aged Out No longer eligible based on patient's age to complete this topic Procedures Procedure Name Priority Date/Time Associated Diagnosis Comments BI US BREAST LIMITED LEFT Routine 10/20/2024 10:15 AM EST BI MAMMOGRAM DIAGNOSTIC TOMOSYNTHESIS LEFT Routine 10/20/2024 9:50 AM EST BI MAMMOGRAM SCREENING TOMOSYNTHESIS BILATERAL Routine 10/05/2024 7:46 AM EST Full PROPHYLAXIS - ADULT Routine 05/10/2024 10:00 AM EDT Advanced periodontitis Dental calculus Gingival bleeding Acute gingival inflammation Localized gingival recession Missing teeth, acquired DIAGNOSTIC - DIAGNOSTIC IMAGING - INTRAORAL - COMPREHENSIVE SERIES OF RADIOGRAPHIC IMAGES Routine 05/10/2024 10:00 AM EDT Advanced periodontitis Dental calculus Gingival bleeding Acute gingival inflammation Localized gingival recession Missing teeth, acquired PERIODIC ORAL EVALUATION - ESTABLISHED PATIENT Routine 05/10/2024 10:00 AM EDT HEPATITIS C AB W/REFL TO HCV RNA, QN, PCR Routine 08/04/2023 8:57 AM EDT Other fatigue HM COLONOSCOPY Routine 02/08/2023 ZZZ HISTORICAL HIV AB/AG Routine 06/30/2022 8:35 AM EDT PAP SMEAR Routine 11/03/2019 12:00 AM EST ZZZ HISTORICAL HPV MRNA E6/E7 Routine 11/18/2018 9:50 AM EST from Last 3 Months or Most Recently Relevant to Health Maintenance Results * BI US Breast Limited Left (10/20/2024 10:15 AM EST) Anatomical Region Laterality Modality Breast Left Ultrasound 10/20/2024 10:1 5 AM EST Narrative 11/13/2024 11:35 AM EST ? [facility] ? [address] ?[place] [address] ? Ultrasound Report ? Signed ? Patient: Donna Nash ?M ?? R#: [id number] ? : 1975 ?Acct:[id number] ? Age/Sex: 49 / F ?ADM Date: 10/20/24 ? Loc: HO.MAMMO ? Attending Dr: Joann Bray MD ? Ordering Physician: Joann Bray MD ?? Date of Service: 10/20/24 ?? Procedure(s): US breast LT limited mamm only ?? Accession Number(s): [id number] ? cc: Joann Bray MD ? EXAMINATION: ?? MM DIAGNOSTIC DIGITAL BREAST TOMOSYNTHESIS, LEFT ? Limited left breast ultrasound. ? CLINICAL INFORMATION: ? Call back from screening for left breast asymmetries. ? COMPARISON: ?? Mammography: Comparison is made with available prior examinations. ? TECHNIQUE: ?? Digital breast tomosynthesis is performed in both the craniocaudal and ?? mediolateral oblique views along with computer-aided detection (CAD). ?? Synthesized 2D images are generated from the tomosynthesis. ? Limited left breast ultrasound. ? FINDINGS: ?? There are scattered areas of fibroglandular density (ACR BI-RADS breast ?? composition Category b). ?? Previously seen asymmetry in the superior left breast on MLO view ?? partially effaces on additional imaging projections. ?? Asymmetry medial breast on CC view persists on additional imaging ?? projections. ? There are no other significant masses, abnormal calcifications, or ?? other abnormalities. ? Targeted color Doppler ultrasound of the left breast scanning in the ?? upper inner quadrant demonstrates 2 simple cysts the larger 11:00 2 cm ?? from the nipple measuring 7 x 3 x 3 mm 2 other subcentimeter cysts are ?? simple and benign the 7 mm cyst is a questionable correlate for the ?? asymmetry in the medial breast on CC view. ? Targeted color Doppler ultrasound scanning in the upper central breast ?? and upper outer quadrant in straight normal fibroglandular breast ?? tissue. There is no sonographic abnormality to correlate with the ?? asymmetry seen on mammography. ? US/US breast LT limited mamm only ?? IMPRESSION: ? 1. Simple cysts at 11:00. Benign. ?? 2. Asymmetry medial left breast on CC view and superior left breast MLO ?? view without definite sonographic correlates. Recommend 6 month ?? follow-up left breast mammogram for further evaluation of stability. ? ASSESSMENT: ? BI-RADS BI-RADS 3 - Probably benign finding(s) - 6 month follow-up ?? suggested ? RECOMMENDATION: ?? 6 Month F/U ? Results were provided to the patient at time of visit by the ?? technologist. ? This patient's information was entered into a reminder system with a ?? target due date for their next mammogram. ? Electronically signed by: ??Arely Elliotdavid DO ??10/20/2024 10:32 AM EST ?? RP ? Dictated By: ?Arely Chery DO ? Signed By: ?<Electronically signed by Arely Chery, DO in OV> ? 10/20/24 1032 ? DD/ 1015 ? TD/TT: 10/20/24 1035 ? Mat Linker: ? Procedure Note Adnrey, Image - 11/13/2024 [facility] [address] [place] [address] Dr. Reis, [place] [address] Ultrasound Report Signed Patient: Hubert Nash R#: [id number] : 1975Acct:[id number] Age/Sex: 49 / FADM Date: 10/20/24 Loc: HO.MAMMO Attending Dr: Joann Bray MD Ordering Physician: Joann Bray MD Date of Service: 10/20/24 Procedure(s): US breast LT limited mamm only Accession Number(s): [id number] cc: Joann Bray MD EXAMINATION: MM DIAGNOSTIC DIGITAL BREAST TOMOSYNTHESIS, LEFT Limited left breast ultrasound. CLINICAL INFORMATION: Call back from screening for left breast asymmetries. COMPARISON: Mammography: Comparison is made with available prior examinations. TECHNIQUE: Digital breast tomosynthesis is performed in both the craniocaudal and mediolateral oblique views along with computer-aided detection (CAD). Synthesized 2D images are generated from the tomosynthesis. Limited left breast ultrasound. FINDINGS: There are scattered areas of fibroglandular density (ACR BI-RADS breast composition Category b). Previously seen asymmetry in the superior left breast on MLO view partially effaces on additional imaging projections. Asymmetry medial breast on CC view persists on additional imaging projections. There are no other significant masses, abnormal calcifications, or other abnormalities. Targeted color Doppler ultrasound of the left breast scanning in the upper inner quadrant demonstrates 2 simple cysts the larger 11:00 2 cm from the nipple measuring 7 x 3 x 3 mm 2 other subcentimeter cysts are simple and benign the 7 mm cyst is a questionable correlate for the asymmetry in the medial breast on CC view. Targeted color Doppler ultrasound scanning in the upper central breast and upper outer quadrant in straight normal fibroglandular breast tissue. There is no sonographic abnormality to correlate with the asymmetry seen on mammography. US/US breast LT limited mamm only IMPRESSION: 1. Simple cysts at 11:00. Benign. 2. Asymmetry medial left breast on CC view and superior left breast MLO view without definite sonographic correlates. Recommend 6 month follow-up left breast mammogram for further evaluation of stability. ASSESSMENT: BI-RADS BI-RADS 3 - Probably benign finding(s) - 6 month follow-up suggested RECOMMENDATION: 6 Month F/U Results were provided to the patient at time of visit by the technologist. This patient's information was entered into a reminder system with a target due date for their next mammogram. Electronically signed by: Arely Chery DO 10/20/2024 10:32 AM EST Dictated By: Arely Chery DO Signed By: <Electronically signed by Arely Chery DO in OV> 10/20/24 1032 DD/ 1015 TD/TT: 10/20/24 1035 Mat Linker: us Joann Bray MD [facility] PROCEDURES Edited R esult - Final * BI Mammogram Diagnostic Tomosynthesis Left (10/20/2024 9:50 AM EST) Anatomical Region Laterality Modality Breast Left Mammography 10/20/2024 9:50 AM EST Narrative 10/20/2024 10:35 AM EST ? [facility] ? [address] ?[place] [address] ? Mammography Report ? Signed ? Patient: Francisco Scott,Donna ?M ?? R#: [id number] ? : 1975 ?Acct:[id number] ? Age/Sex: 49 / F ?ADM Date: 11/22/24 ? Loc: HO.MAMMO ? Attending Dr: Joann Bray MD ? Ordering Physician: Joann Bray MD ? Results: 3.6MProbably Benign Finding - Short 6 M F/U ?? Suggested ? Date of Service: 10/20/24 ?Follow Up: 6 Month F/U ? Procedure(s): MM tomosynthesis diagnostic LT ?? Accession Number(s): [id number] ? cc: Joann Bray MD ? EXAMINATION: ?? MM DIAGNOSTIC DIGITAL BREAST TOMOSYNTHESIS, LEFT ? Limited left breast ultrasound. ? CLINICAL INFORMATION: ? Call back from screening for left breast asymmetries. ? COMPARISON: ?? Mammography: Comparison is made with available prior examinations. ? TECHNIQUE: ?? Digital breast tomosynthesis is performed in both the craniocaudal and ?? mediolateral oblique views along with computer-aided detection (CAD). ?? Synthesized 2D images are generated from the tomosynthesis. ? Limited left breast ultrasound. ? FINDINGS: ?? There are scattered areas of fibroglandular density (ACR BI-RADS breast ?? composition Category b). ?? Previously seen asymmetry in the superior left breast on MLO view ?? partially effaces on additional imaging projections. ?? Asymmetry medial breast on CC view persists on additional imaging ?? projections. ? There are no other significant masses, abnormal calcifications, or ?? other abnormalities. ? Targeted color Doppler ultrasound of the left breast scanning in the ?? upper inner quadrant demonstrates 2 simple cysts the larger 11:00 2 cm ?? from the nipple measuring 7 x 3 x 3 mm 2 other subcentimeter cysts are ?? simple and benign the 7 mm cyst is a questionable correlate for the ?? asymmetry in the medial breast on CC view. ? Targeted color Doppler ultrasound scanning in the upper central breast ?? and upper outer quadrant in straight normal fibroglandular breast ?? tissue. There is no sonographic abnormality to correlate with the ?? asymmetry seen on mammography. ? MM/MM tomosynthesis diagnostic LT ?? IMPRESSION: ? 1. Simple cysts at 11:00. Benign. ?? 2. Asymmetry medial left breast on CC view and superior left breast MLO ?? view without definite sonographic correlates. Recommend 6 month ?? follow-up left breast mammogram for further evaluation of stability. ? ASSESSMENT: ? BI-RADS BI-RADS 3 - Probably benign finding(s) - 6 month follow-up ?? suggested ? RECOMMENDATION: ?? 6 Month F/U ? Results were provided to the patient at time of visit by the ?? technologist. ? This patient's information was entered into a reminder system with a ?? target due date for their next mammogram. ? Electronically signed by: ??Arely Chery DO ??10/20/2024 10:32 AM EST ? Dictated By: ?Arely Chery DO ? Signed By: ?<Electronically signed by Arely Chery, in OV> ? 10/20/24 1032 ? DD/ 0950 ? TD/TT: 10/20/24 1007 ? Mat Linker: ? Procedure Note Dasia Balderas - 11/13/2024 [facility] [address] [place] [address] Mammography Report Signed Patient: Hubert Nash#: [id number] : 1975Acct:[id number] Age/Sex: 49 / FADM Date: 10/20/24 Loc: HO.MAMMO Attending Dr: Joann Bray MD Ordering Physician: Joann Bray MD Results: 3.6MProbably Benign Finding - Short 6 M F/U Suggested Date of Service: 10/20/24Follow Up: 6 Month F/U Procedure(s): MM tomosynthesis diagnostic LT Accession Number(s): [id number] cc: Joann Bray MD EXAMINATION: MM DIAGNOSTIC DIGITAL BREAST TOMOSYNTHESIS, LEFT Limited left breast ultrasound. CLINICAL INFORMATION: Call back from screening for left breast asymmetries. COMPARISON: Mammography: Comparison is made with available prior examinations. TECHNIQUE: Digital breast tomosynthesis is performed in both the craniocaudal and mediolateral oblique views along with computer-aided detection (CAD). Synthesized 2D images are generated from the tomosynthesis. Limited left breast ultrasound. FINDINGS: There are scattered areas of fibroglandular density (ACR BI-RADS breast composition Category b). Previously seen asymmetry in the superior left breast on MLO view partially effaces on additional imaging projections. Asymmetry medial breast on CC view persists on additional imaging projections. There are no other significant masses, abnormal calcifications, or other abnormalities. Targeted color Doppler ultrasound of the left breast scanning in the upper inner quadrant demonstrates 2 simple cysts the larger 11:00 2 cm from the nipple measuring 7 x 3 x 3 mm 2 other subcentimeter cysts are simple and benign the 7 mm cyst is a questionable correlate for the asymmetry in the medial breast on CC view. Targeted color Doppler ultrasound scanning in the upper central breast and upper outer quadrant in straight normal fibroglandular breast tissue. There is no sonographic abnormality to correlate with the asymmetry seen on mammography. MM/MM tomosynthesis diagnostic LT IMPRESSION: 1. Simple cysts at 11:00. Benign. 2. Asymmetry medial left breast on CC view and superior left breast MLO view without definite sonographic correlates. Recommend 6 month follow-up left breast mammogram for further evaluation of stability. ASSESSMENT: BI-RADS BI-RADS 3 - Probably benign finding(s) - 6 month follow-up suggested RECOMMENDATION: 6 Month F/U Results were provided to the patient at time of visit by the technologist. This patient's information was entered into a reminder system with a target due date for their next mammogram. Electronically signed by: Arely Chery DO 10/20/2024 10:32 AM EST Dictated By: Arely Chery DO Signed By: <Electronically signed by Arely Chery DO in OV> 10/20/24 1032 DD/ 0950 TD/TT: 10/20/24 1007 Mat Linker: us Joann Bray MD IMG BI PROCEDURES Edited R esult - Final * BI Mammogram Screening Tomosynthesis Bilateral (10/05/2024 7:46 AM EST) Anatomical Region Laterality Modality Breast Bilateral Mammography 10/05/2024 7:46 AM EST Narrative 10/13/2024 4:10 PM EST ? [facility] ? [address] ?[place] [address] ? Mammography Report ? Signed ? Patient: Francisco Scott,Donna ?M ?? R#: [id number] ? : 1975 ?Acct:[id number] ? Age/Sex: 48 / F ?ADM Date: 10/05/24 ? Loc: HO.MAMMO ? Attending Dr: Joann Bray MD ? Ordering Physician: Joann Bray MD ?Results: 0I ?? ncomplete: Needs Additional Imaging Evaluation ? Date of Service: 10/05/24 ?Follow Up: Additional Imagi ?? ng ? Procedure(s): MM tomosynthesis screening BI ?? Accession Number(s): [id number] ? cc: Joann Bray MD ? EXAMINATION: ?? MM SCREENING DIGITAL BREAST TOMOSYNTHESIS, BILATERAL ? CLINICAL INFORMATION: ? Screening. Asymptomatic. ? COMPARISON: ?? Mammography: Comparison is made with available priors ? TECHNIQUE: ?? Digital breast mammography with tomosynthesis is performed in both the ?? craniocaudal and mediolateral oblique views along with computer-aided ?? detection (CAD). ? FINDINGS: ?? The breasts are heterogeneously dense, which may obscure small masses ?? (ACR BI-RADS breast composition Category c). ?? Right: ?? There are no significant masses, abnormal calcifications, or other ?? abnormalities. ? Left: Asymmetry superior breast posterior depth on MLO view. ?? Asymmetry medial breast middle depth on CC view. ?? No suspicious calcifications or other abnormal findings. ? MM/MM tomosynthesis screening BI ?? IMPRESSION: ?? Additional imaging is recommended ? ASSESSMENT: ? BI-RADS BI-RADS 0 - Incomplete: Needs additional Imaging. ? RECOMMENDATION: ?? 1. Additional views of the left breast ?? 2. Targeted ultrasound if warranted after review of the additional ?? views. ?? 3. Radiology department staff will contact the patient for additional ?? imaging. ? Additional Imaging required ? This examination should not preclude the clinical evaluation of a ?? suspicious palpable abnormality. ? This patient's information was entered into a reminder system with a ?? target due date for their next mammogram. ? Electronically signed by: ??Arely Chery DO ??10/13/2024 04:07 PM EST ? Dictated By: ?Arely Chery DO ? Signed By: ?<Electronically signed by Arely Chery, DO in OV> ? 10/13/24 1607 ? DD/ 0746 ? TD/TT: 10/05/24 0802 ? Mat Linker: ? Procedure Note Andrey, Image - 10/13/2024 [facility] [address] [place] [address] [place] [address] Mammography Report Signed Patient: Hubert Nash R#: [id number] : 1975Acct:[id number] Age/Sex: 48 / FADM Date: 10/05/24 Loc: MICHAELO Attending Dr: Joann Bray MD Ordering Physician: Joann Bray MDResults: 0I ncomplete: Needs Additional Imaging Evaluation Date of Service: 10/05/24Follow Up: Additional Imagi ng Procedure(s): MM tomosynthesis screening BI Accession Number(s): [id number] cc: Joann Bray MD EXAMINATION: MM SCREENING DIGITAL BREAST TOMOSYNTHESIS, BILATERAL CLINICAL INFORMATION: Screening. Asymptomatic. COMPARISON: Mammography: Comparison is made with available priors TECHNIQUE: Digital breast mammography with tomosynthesis is performed in both the craniocaudal and mediolateral oblique views along with computer-aided detection (CAD). FINDINGS: The breasts are heterogeneously dense, which may obscure small masses (ACR BI-RADS breast composition Category c). Right: There are no significant masses, abnormal calcifications, or other abnormalities. Left: Asymmetry superior breast posterior depth on MLO view. Asymmetry medial breast middle depth on CC view. No suspicious calcifications or other abnormal findings. MM/MM tomosynthesis screening BI IMPRESSION: Additional imaging is recommended ASSESSMENT: BI-RADS BI-RADS 0 - Incomplete: Needs additional Imaging. RECOMMENDATION: 1. Additional views of the left breast 2. Targeted ultrasound if warranted after review of the additional views. 3. Radiology department staff will contact the patient for additional imaging. Additional Imaging required This examination should not preclude the clinical evaluation of a suspicious palpable abnormality. This patient's information was entered into a reminder system with a target due date for their next mammogram. Electronically signed by: Arely Chery DO 10/13/2024 04:07 PM [facility] Dictated By: Arely Chery DO Signed By: <Electronically signed by Arely Chery DO in OV> 10/13/24 1607 DD/ 0746 TD/TT: 10/05/24 0802 Mat Linker: us Joann Bray MD IM BI PROCEDURES Final Re sult * Hepatitis C Antibody with Reflex to HCV, RNA, Quantitative, Real-Time PCR (08/04/2023 8:57 AM EDT) Hepatitis C Antibody Nonreactive Nonreactive [facility] Comment:Antibodies to HCV no t detected; does not exclude early acuteHCV infection. Blood Venous blood specimen / Unknown 08/04/2023 8:57 AM EDT 08/04/2023 8:57 AM EDT Joann Bray MD LAB BLOOD ORDERABLES Final Result Performing Organization Address [facility]/ZIP Co de Phone Number [facility] [address] [place] [address] [phone] * Hm Colonoscopy (02/08/2023) Colonoscopy Normal Normal Historical Provider HEALTH MAINTENANCE Final Result * HIV AB/AG (06/30/2022 8:35 AM EDT) HIV AB/AG Nonreactive Nonreactive [facility] Comment: HIV-1 p24 Ag and/or HIV-1/HIV-2 Ab not detected. ?? A test result that is nonreactive does not exclude the possibility of exposure to or infection with HIV-1 and/or HIV-2. Nonreactive results in this assay for individuals with prior exposure to HIV-1 and/or HIV-2 may be due to antigen and antibody levels that are below the limit of detection of this assay. ?? The [employer] HIV Ag/Ab Combo assay result and supplemental assay results should be interpreted in conjunction with the patient's clinical presentation, history and other laboratory results. ??If the results are inconsistent with clinical evidence, additional testing is suggested to confirm the result. 06/30/2022 8:35 AM EDT Joann Bray MD HISTORICAL/NON ORDERABLE L ABS Final Result Performing Organization Address [facility] Co de Phone Number [facility] [address] * Pap Smear (11/03/2019 12:00 AM EST) Swab Historical Provider LAB CYTOLOGY ORDERABLES F inal Result Performing Organization Address [facility] Co de Phone Number IMAGING * HPV mRNA E6/E7 (11/18/2018 9:50 AM EST) HPV mRNA E6/E7 Not Detected NOT DETECTED [facility] Comment: This test was performed using the APTIMA(R) HPV Assay ([employer] This assay detects E6/E7 viral messenger RNA (mRNA) from 14 high-risk HPV types (16,18,31,33,35,39,45,51, 52,56,58,59,66,68). For additional information please refer to: http://education.Viableware/faq/BNJ013j5 (This link is being provided for informational/ educational purposes only.) The analytical performance characteristics of this assay have been determined by [employer] [place], [place]. The modifications have not been cleared or approved by the FDA. This assay has been validated pursuant to the CLIA regulations and is used for clinical purposes. Test Performed by [facility], [employer] [facility], [address] [place] [address] Clyde Gomez M.D., Ph.D., Director of Laboratories , CLIA [id number] Please note: ??Effective 08/10/2016, HPV testing will be performed using [employer] APTIMA test which targets mRNA. Detecting mRNA instead of DNA, as in older methods, offers significant improvements in specificity. 11/18/2018 9:50 AM EST us Joann Bray MD HISTORICAL/NON ORDERABLE L ABS Final Result [facility] [address] from Last 3 Months or Most Recently Relevant to Health Maintenance Insurance [address] [address] [address] [employer] [facility] Advance Directives Documents on File Type Date Recorded Patient Ladler Expl anation Advance Directives and Living Will 09/18/2024 Health Care Proxy 09/18/24 Care Teams Sales Engagement Executive Relationship Specialty Start Date End Date Asa, MD Joann [address] [place] [address] PCP - General Family Medicine 11/29/18 Stephanie Maya MD [address] [place] [address] [address] [place] [address] Gastroenterology 11/15/24
--- OUTSIDE RECORDS SUMMARY | 2024-12-29 14:14 | XMS_ITS | Encounter Summary ---
Author Organization [employer] Address [address] [place] [address] Care Team Providers Care Brass Finisher Name Role Phone Joann Bray MD Primary Care Provider [phone] Stephanie Maya MD Unavailable [phone] Encounter Details Date Type Department Care Team (Late st Contact Info) Description 07/27/2023 Abstract [facility] [address] [place], [place] [phone] Joann Bray MD [address] [place], [place] [phone] Social History Tobacco Use Types Packs/Day Years [...] on filedocumented in this encounter Care Teams Brass Finisher Relationship Specialty Start Date End Date Joann Bray MD [address] [place], [place] [phone] PCP - General Family Medicine 11/29/18 Stephanie Maya MD [address] [place] [address] Gastroenterology 11/15/24 documented as of this encounter
--- OUTSIDE RECORDS SUMMARY | 2024-12-29 14:14 | XMS_ITS | Encounter Summary ---
Author Organization [employer] Address [address] [place] [address] Care Team Providers Care Road Roller Engineer Name Role Phone Joann Bray MD Primary Care Provider [phone] Stephanie Maya MD Unavailable [phone] Reason for Visit * Reason Comments Pap Encounter Details Date Type Department Care Team (Latest Contact Info) Description 12/29/2024 9:00 AM EST Procedure Visit [facility] [address] [place], [place] [phone] Joann Bray MD [address] [place], [place] [phone] Hx of abnormal cervical Pap smear (Primary Dx); Abnormal mammogram; Dyslipidemia; Dietary counseling; Exercise counseling; Overweight; Cervical cancer screening; Routine screening for STI (sexually transmitted infection) Social History Tobacco Use Types Packs/Day Years Used Date Smoking Tobacco: Never Smokeless Tobacco: Never Depression Answer Date Recorded Patient Health Questionnaire-9 [...] AM EDT documented as of this encounter Last Filed Vital Signs Vital Sign Reading [...] Mass Index 28.84 12/29/2024 9:08 AM EST documented in this encounter Progress Notes * Joann Bray MD - 12/29/2024 9:00 AM EST Subjective Donna Scott is a 49 y.o. woman here for pap. LMP: 08/2024 Menses frequency: n/a Menses concerns: n/a Desires within the next year:no Brith control: Tubal Ligation Breast concerns: none. Negative for: Masses, Nipple discharge, and Tenderness Menopausal symptoms negative for: hot flashes, night sweats, urinary incontinence and vaginal dryness. Review of Systems Constitutional: Negative for fever and unexpected weight change. Gastrointestinal: Negative for abdominal pain. Genitourinary: Positive for vaginal discharge and vaginal pain. Negative for difficulty urinating. Previous paps: 10/20/24. Simple cysts at 11:00. Benign. Asymmetry medial left breast on CC view andsuperior left breast MLO view without definite sonographic correlates. Recommend 6 month follow-up left breast mammogram for further evaluation of stability. Mammogram: 11/13/24: BI-RADS BI-RADS 3 Simple cysts at 11:00. Benign. Asymmetry medial left breast on CC view and superior left breast MLO view without definite sonographic correlates. Objective Visit Vitals BP 130/82 (BP Location: Left arm, Patient Position: Sitting, BP Cuff Size: Adult) Pulse 70 Temp 98.9 ??F (37.2 ??C) (Temporal) Resp 18 Physical Exam Constitutional: Appearance: Normal appearance. Cardiovascular: Rate and Rhythm: Normal rate. Pulmonary: Effort: Pulmonary effort is normal. Chest: Breasts: Right: Normal. Left: Normal. Abdominal: General: Abdomen is flat. Palpations: Abdomen is soft. Genitourinary: General: Normal vulva. Vagina: Normal. Cervix: Lesion (nabothian cysts) present. Uterus: Normal. Lymphadenopathy: Upper Body: Right upper body: No supraclavicular, axillary or pectoral adenopathy. Left upper body: No supraclavicular, axillary or pectoral adenopathy. Neurological: Mental Status: She is alert. Mental status is at baseline. Psychiatric: Behavior: Behavior normal. Problem List Items Addressed This Visit Hx of abnormal cervical Pap smear - Primary -Hx ELEANOR 1 2008 with subsequent normal paps until 2014 - ASCUS with negative HPV 10/2015. -ASCUS with negative HPV 11/18/18 -cotesting NILM HPV negative 10/2019, next due in 5 years, 10/2024 -Pap with HPV testing done 09/18/24 STI testing offered, PreP offered Abnormal mammogram -09/30/23 BI-RADS BI-RADS 2, Benign Findings, repeat annually. -09/28/22 -09/26/2021 BIRADS negative. -08/23/2020 BiRADs recommend annual mammo -02/16/2020 mammo and US likely benign, repeat 6 months - 08/17 mammo Continued probable benign ultrasound appearance of a mildly complex right breast cyst. -02/13/19: R BREAST US/MAMMO: The probable benign grouping of cysts mid lower outer right breast arestable to borderline decreased. No interval suspicious changes. BI-RADS 3: Probably Benign -04/24/15: L BREAST SURGERY: Fibrocystic changes including apocrine metaplasia, microcysts, moderateductal hyperplasia, periductal chronic inflammation, fibrosis and associated microcalcifications. -11/13/24: BI-RADS BI-RADS 3 Simple cysts at 11:00. Benign. Asymmetry medial left breast on CC viewand superior left breast MLO view without definite sonographic correlates. Recommend 6 month follow-up left breast mammogram for further evaluation of stability due 04/2024 -10/20/24. Simple cysts at 11:00. Benign. Asymmetry medial left breast on CC view and superior leftbreast MLO view without definite sonographic correlates. Recommend 6 month follow-up left breast mammogram for further evaluation of stability. Dyslipidemia Lab Results Component Value Date CHOL 238 (H) 08/04/2023 TRIG 90 08/04/2023 HDL 61 08/04/2023 LDLCHOLCAL 159 (H) 08/04/2023 -continue lifestyle modification -ordered repeat FLP 09/18/24 -ordered repeat FLP and HFP 12/29/24 Relevant Orders Lipid Panel, Standard Dietary counseling Dietary Recommendations: Fruits, vegetables, whole grains, protein foods, and fat-free or low-fat dairy products are healthychoices. Eat different types of protein foods in your diet. This can include seafood, lean meats, poultry, beans, peas, lentils, nuts, seeds, soy products, and eggs. Limit foods and beverages higher in added sugars, saturated fat, and sodium. Exercise counseling Exercise Recommendations: At least 150 minutes of moderate-intensity physical activity per week, or an equivalent combinationof moderate- and vigorous-intensity activity Overweight Discussed weight, diet, exercise with patient in relation to health conditions. Used motivational interviewing to illicit change talk and established initial goals with patient. Pap with HPV testing done STI testing offered, PreP offered Preventative care and harm reduction discussed Follow up in about 40 weeks (around 10/05/2025) for physical. Melinda Sheldon, am serving as a scribe to document services personally performed by Dr. Cancino, based on the patient's response to questions by provider and providers statements to me. documented in this encounter Miscellaneous Notes * Assessment & Plan Note - Melinda Chan - 12/29/2024 9:35 AM ESTAssociated Problem(s): Overweight Discussed weight, diet, exercise with patient in relation to health conditions. Used motivational interviewing to illicit change talk and established initial goals with patient. * Assessment & Plan Note - Melinda Chan - 12/29/2024 9:35 AM ESTAssociated Problem(s): Exercise counseling Exercise Recommendations: At least 150 minutes of moderate-intensity physical activity per week, or an equivalent combinationof moderate- and vigorous-intensity activity * Assessment & Plan Note - Melinda Chan - 12/29/2024 9:35 AM ESTAssociated Problem(s): Dietary counseling Dietary Recommendations: Fruits, vegetables, whole grains, protein foods, and fat-free or low-fat dairy products are healthychoices. Eat different types of protein foods in your diet. This can include seafood, lean meats, poultry, beans, peas, lentils, nuts, seeds, soy products, and eggs. Limit foods and beverages higher in added sugars, saturated fat, and sodium. * Assessment & Plan Note - Melinda Chan - 12/29/2024 9:34 AM ESTAssociated Problem(s): Abnormal mammogram -09/30/23 BI-RADS BI-RADS 2, Benign Findings, repeat annually. -09/28/22 -09/26/2021 BIRADS negative. -08/23/2020 BiRADs recommend annual mammo -02/16/2020 mammo and US likely benign, repeat 6 months - 08/17 mammo Continued probable benign ultrasound appearance of a mildly complex right breast cyst. -02/13/19: R BREAST US/MAMMO: The probable benign grouping of cysts mid lower outer right breast arestable to borderline decreased. No interval suspicious changes. BI-RADS 3: Probably Benign -04/24/15: L BREAST SURGERY: Fibrocystic changes including apocrine metaplasia, microcysts, moderateductal hyperplasia, periductal chronic inflammation, fibrosis and associated microcalcifications. -11/13/24: BI-RADS BI-RADS 3 Simple cysts at 11:00. Benign. Asymmetry medial left breast on CC viewand superior left breast MLO view without definite sonographic correlates. Recommend 6 month follow-up left breast mammogram for further evaluation of stability due 04/2024 -10/20/24. Simple cysts at 11:00. Benign. Asymmetry medial left breast on CC view and superior leftbreast MLO view without definite sonographic correlates. Recommend 6 month follow-up left breast mammogram for further evaluation of stability. * Assessment & Plan Note - Melinda Chan - 12/29/2024 9:34 AM ESTAssociated Problem(s): Hx of abnormal cervical Pap smear -Hx ELEANOR 1 2008 with subsequent normal paps until 2015 - ASCUS with negative HPV 10/2015. -ASCUS with negative HPV 11/18/18 -cotesting NILM HPV negative 10/2019, next due in 5 years, 10/2024 -Pap with HPV testing done 09/18/24 STI testing offered, PreP offered * Assessment & Plan Note - Melinda Chan - 12/29/2024 9:33 AM ESTAssociated Problem(s): Dyslipidemia Lab Results Component Value Date CHOL 238 (H) 08/04/2023 TRIG 90 08/04/2023 HDL 61 08/04/2023 LDLCHOLCAL 159 (H) 08/04/2023 -continue lifestyle modification -ordered repeat FLP 09/18/24 -ordered repeat FLP and HFP 12/29/24 documented in this encounter Plan of Treatment Scheduled Orders Name Type Priority Associated Diagnoses Order Schedule Lipid Panel, Standard Lab Routine Dyslipidemia Expected: 12/29/2024 (Approximate), Expires: 12/29/2025 Pap Smear Pathology and Cytology Routine Cervical cancer screening Ordered: 12/29/2024 Chlamydia/N. Gonorrhoeae RNA, TMA, Vagina Microbiology Routine Routine screening for STI (sexually transmitted infection) Ordered: 12/29/2024 documented as of this encounter Visit Diagnoses Diagnosis Hx of abnormal cervical Pap smear- Primary Abnormal mammogram Abnormal mammogram, unspecified Dyslipidemia Other and unspecified hyperlipidemia Dietary counseling Dietary surveillance and counseling Exercise counseling Overweight Cervical cancer screening Screening for malignant neoplasm of the cervix Routine screening for STI (sexually transmitted infection) Screening examination for venereal disease documented in this encounter Additional Health Concerns Assessment Noted Time PHQ-9 Depression Total Score: 1 09/18/20 24 10:02 AM EDT documented as of this encounter Care Teams Road Roller Engineer Relationship Specialty Start Date End Date Joann Bray MD [address] [place] [id number] PCP - General Family Medicine 11/29/18 Stephanie Maya MD [address] [place] [address] [address] [place] [address] Gastroenterology 11/15/24 documented as of this encounter
--- OUTSIDE RECORDS SUMMARY | 2024-12-29 14:14 | XMS_ITS | Encounter Summary ---
Author Organization [employer] Address [address] [place] [address] Care Team Providers Care Roll Changer Name Role Phone Joann Bray MD Primary Care Provider [phone] Stephanie Maya MD Unavailable [phone] Encounter Details Date Type Department Care Team (Late st Contact Info) Description 07/27/2023 Abstract [facility] MED[facility]INE [address] [place], [place] [phone] Joann Bray MD [address] [place], [place] [phone] Social History Tobacco Use Types Packs/Day Years [...] on filedocumented in this encounter Care Teams Roll Changer Relationship Specialty Start Date End Date Joann Bray MD [address] [place], [place] [phone] PCP - General Family Medicine 11/29/18 Stephanie Maya MD [address] [place] [address] Gastroenterology 11/15/24 documented as of this encounter
--- OUTSIDE RECORDS SUMMARY | 2024-12-29 14:14 | XMS_ITS | Encounter Summary ---
Author Organization [employer] Address [address] [place] [address] Care Team Providers Care Siebel Consultant Name Role Phone Joann Bray MD Primary Care Provider [phone]- [phone] Stephanie Maya MD Unavailable [phone] Encounter Details Date Type Department Care Team (Latest Contact Info) Description 12/29/2024 Travel Social History Tobacco Use Types Packs/Day Years [...] Diagnoses Not on filedocumented in this encounter Additional Health Concerns Assessment Noted Time PHQ-9 Depression Total Score: 1 09/18/20 24 10:02 AM EDT documented as of this encounter Care Teams Siebel Consultant Relationship Specialty Start Date End Date Joann Bray MD [address] [place] [address] PCP - General Family Medicine 11/29/18 Stephanie Maya MD [address] [place] [address] [address] [place] [address] Gastroenterology 11/15/24 documented as of this encounter
--- OUTSIDE RECORDS SUMMARY | 2024-12-29 14:14 | XMS_ITS | Encounter Summary ---
Author Organization [employer] Address [address] [place] [address] Care Team Providers Care Apparel Fashion Designer Name Role Phone Joann Bray MD Primary Care Provider [phone] Stephanie Maya MD Unavailable [phone] Encounter Details Date Type Department Care Team (Late st Contact Info) Description 02/10/2023 Abstract [facility] [address] [place], [place] [phone] Joann Bray MD [address] [place] [address] Social History Tobacco Use Types Packs/Day Years [...] on file documented as of this encounter Procedures Procedure Name Priority Date/Time Associated Diagnosis Comments COLONOSCOPY Routine 02/08/2023 documented in this encounter Results * Colonoscopy (02/08/2023) Colonoscopy Normal Normal us Historical Provider HEALTH MAINTENANCE Final Result documented in this encounter Visit Diagnoses Not on filedocumented in this encounter Care Teams Apparel Fashion Designer Relationship Specialty Start Date End Date Joann Bray MD [address] [place] [address] PCP - General Family Medicine 11/29/18 Stephanie Maya MD [address] [place] [address] Drive 3rd [place] [address] Gastroenterology 11/15/24 documented as of this encounter
--- OUTSIDE RECORDS SUMMARY | 2024-12-29 14:14 | XMS_ITS | Encounter Summary ---
Demographics Address [address] [place] [address] Mobile Phone Work Phone Home Phone Preferred Language es Marital Status Yazidi Affiliation Unknown Race Other Race Ethnic Group or Author Organization [employer] Address [address] [place] [address] Care Team Providers Care Metalsmith Helper Name Role Phone [place], Joann MORALES Primary Care Provider [phone]- [phone] Stephanie Maya MD Unavailable [phone] Reason for Visit * Reason Onset Date Comments Chart Prep 12/28/2024 Encounter Details Date Type Department Care Team ([facility] st Contact Info) Description 12/28/2024 Telephone [facility] [address] [place] [address] Carmen Scott MA Chart Prep Social History Tobacco Use Types Packs/Day Years [...] AM EDT documented as of this encounter Miscellaneous Notes * Telephone Encounter - Carmen Scott MA - 12/28/2024 1:32 PM EST Chart Prep Labs: not done Images: done Vaccines due: Tdap Due and Shingles in pharmacy Due Referrals: Completed Screenings: Eye Exam, Lung Cancer screening , and Not Applicable Overdue care gaps: None documented in this encounter Plan of Treatment Not on file documented as of this encounter Visit Diagnoses Not on filedocumented in this encounter Additional Health Concerns Assessment Noted Time PHQ-9 Depression Total Score: 1 09/18/20 24 10:02 AM EDT documented as of this encounter Care Teams Metalsmith Helper Relationship Specialty Start Date End Date Joann Bray MD [address] [place] [address] PCP - General Family Medicine 11/29/18 Stephanie Maya MD [address] [place] [address] [address] [place] [address] Gastroenterology 11/15/24 documented as of this encounter
--- OUTSIDE RECORDS SUMMARY | 2024-12-29 14:14 | XMS_ITS | Encounter Summary ---
Author Organization [employer] [facility] Address [address] [place] [address] Care Team Providers Care Joinery Machinist Name Role Phone Joann Bray MD Primary Care Provider [phone]- [phone] Stephanie Maya MD Unavailable [phone] Encounter Details Date Type Department Care Team (Latest Contact Info) Description 04/20/2022 Abstract [facility] CONVERSIONS Dental, Provider, DDS Social History [...] on filedocumented in this encounter Care Teams Joinery Machinist Relationship Specialty Start Date End Date Joann Bray MD [address] [place] [address] PCP - General Family Medicine 11/29/18 Stephanie Maya MD [address] [place] [id number] Gastroenterology 11/15/24 documented as of this encounter
--- OUTSIDE RECORDS SUMMARY | 2024-12-29 14:14 | XMS_ITS | Encounter Summary ---
Author Organization [employer] Address [address] [place] [address] Care Team Providers Care Auto Radio Mechanic Name Role Phone Joann Bray MD Primary Care Provider [phone]- [phone] Stephanie Maya MD Unavailable [phone] Encounter Details Date Type Department Care Team (Late st Contact Info) Description 01/11/2023 Abstract [facility] MEDICINE [address] [place], [place] [phone] Joann Bray MD [address] [place] [address] Social History Tobacco Use Types Packs/Day Years [...] Name Priority Date/Time Associated Diagnosis Comments BI MAMMOGRAM SCREENING BILATERAL Routine 09/28/2022 12:53 PM EDT PAP SMEAR Routine 11/03/2019 12:00 AM EST documented in this encounter Results * BI Mammogram Screening Bilateral (09/28/2022 12:53 PM EDT) Anatomical Region Laterality Modality Breast Bilateral Mammography us Historical Provider MD RIVAS BI PROCEDURES Final R esult * Pap Smear (11/03/2019 12:00 AM EST) Swab us Historical Provider LAB CYTOLOGY ORDERABLES F inal Result IMAGING documented in this encounter Visit Diagnoses Not on filedocumented in this encounter Care Teams Auto Radio Mechanic Relationship Specialty Start Date End Date Joann Bray MD [address] [place] [address] PCP - General Family Medicine 11/29/18 Stephanie Maya MD [address] [place] [address] 3rd [place] [address] Gastroenterology 11/15/24 documented as of this encounter
[2024-12-30 06:22] LABS: CT PCR NOT DETECTED (Not Detect.); NG PCR NOT DETECTED (Not Detect.)
== END 2024-12-29 14:11 | disposition home or self-care (01) ==
LOC: HO.HHCLNP 14:10
PROVIDERS: Visit Provider Family Medicine
DX: Z11.3 Encounter for screening for infections with a predominantly sexual mode of transmission (principal); Z12.4 Encounter for screening for malignant neoplasm of cervix
CPT/HCPCS: 87491; 87591; 87626; 88175

== ENCOUNTER 2025-04-24 08:20 | Outpatient (REF) | payer OTHER, SELFPAY ==
--- NOTE | ~2025-04-24 | MM_ITS ---
EXAMINATION: MM DIAGNOSTIC DIGITAL BREAST TOMOSYNTHESIS, LEFT CLINICAL INFORMATION: Follow-up for asymmetries in the left breast superiorly on MLO view and medially on CC view without sonographic correlate. COMPARISON: Mammography: Priors on PACS. TECHNIQUE: Digital breast tomosynthesis is performed in both the craniocaudal and mediolateral oblique views along with computer-aided detection (CAD). Synthesized 2D images are generated from the tomosynthesis. FINDINGS: There are scattered areas of fibroglandular density (ACR BI-RADS breast composition Category b). Asymmetry in the superior left breast posterior depth on MLO view is less conspicuous compared with priors. Asymmetry medial left breast on CC view is not significant change from prior. Left marker clip. No suspicious calcifications or other abnormal findings. MM/MM tomosynthesis diagnostic LT IMPRESSION: Asymmetries in the superior left breast on MLO view and medial breast on CC view not significant change from prior's. Recommend 6 month follow up with the patient is due for bilateral mammography. Probably benign. ASSESSMENT: BI-RADS BI-RADS 3 - Probably benign finding(s) - 6 month follow-up suggested RECOMMENDATION: 6 Month F/U Results were provided to the patient at time of visit by the technologist. This patient's information was entered into a reminder system with a target due date for their next mammogram. Electronically signed by: Arely Chery DO 04/24/2025 08:50 AM EDKwame
--- OUTSIDE RECORDS SUMMARY | 2025-04-24 08:28 | XMS_ITS | Encounter Summary ---
Author Organization [employer] Address [address] [place] [address] 7[address] [place] [address] Care Team Providers Care Shaker Plate Operator Name Role Phone Joann Bray MD Primary Care Provider [phone] Stephanie Maya MD Unavailable [phone] Encounter Details Date Type Department Care Team (Latest Contact Info) Description 04/20/2022 Abstract [facility] CONVERSIONS Dental, Provider, DDS Social History [...] on filedocumented in this encounter Care Teams Shaker Plate Operator Relationship Specialty Start Date End Date Joann Bray MD [address] [place] [address] PCP - General Family Medicine 11/29/18 Stephanie Maya MD [address] [place] [address] 3[address] [place] [address] Gastroenterology 11/15/24 documented as of this encounter
== END 2025-04-24 08:21 | disposition home or self-care (01) ==
LOC: HO.MAMMO 08:20
PROVIDERS: PCP Family Medicine; Visit Provider Family Medicine
DX: N64.89 Other specified disorders of breast (principal)
CPT/HCPCS: 77061; 77065

== ENCOUNTER → 2025-04-24 08:30 | Outpatient (BNV) | payer OTHER, SELFPAY | PROVIDERS: PCP Family Medicine; Visit Provider Internal Medicine | DX: R92.8 Other abnormal and inconclusive findings on diagnostic imaging of breast (principal) | CPT/HCPCS: 77061; 77065 ==

== ENCOUNTER 2025-10-29 09:54 | Outpatient (REF) | payer OTHER, SELFPAY ==
--- NOTE | ~2025-10-29 | MM_ITS ---
EXAMINATION(S): MM DIAGNOSTIC DIGITAL BREAST TOMOSYNTHESIS, BILATERAL CLINICAL INFORMATION: Today is the second 6-month follow-up of the left breast findings without suspicious sonographic correlate: -Asymmetry in the superior breast posterior depth on the MLO view, which was less conspicuous on the first 6-month follow-up in March 2025. -Asymmetry in the medial breast middle depth on the CC view COMPARISON: Comparison made to multiple prior, most recent left diagnostic mammogram on April 24, 2025, and most remote August 17, 2019. TECHNIQUE: Digital breast tomosynthesis is performed in both the mediolateral oblique and craniocaudal views along with computer-aided detection (CAD). Synthesized 2D images are generated from the tomosynthesis. FINDINGS: BREAST COMPOSITION: There are scattered areas of fibroglandular density. RIGHT BREAST: No significant masses, suspicious calcifications or other abnormalities are seen. LEFT BREAST: -Asymmetry in the upper breast posterior depth on the MLO view is similar to when first described in September 2024. -Asymmetry in the medial breast middle depth on the CC view is unchanged from at least September 2024. -No new masses, suspicious calcifications or other abnormalities are seen. MM/MM tomosynthesis diagnostic BI IMPRESSION: RIGHT BREAST: Negative, no mammographic evidence of malignancy. Normal interval follow-up is recommended in 12 months. LEFT BREAST: Asymmetry in the upper breast posterior depth on MLO view and asymmetry in the medial breast middle depth on the CC view are not significantly changed from recent studies. Probably benign. A one year follow-up is recommended as bilateral diagnostic mammogram. ASSESSMENT: BI-RADS: Category 3: Probably benign RECOMMENDATION: 12 month diagnostic follow up Results were provided to the patient at time of visit by the technologist. This patient's information was entered into a reminder system with a target due date for their next mammogram. Electronically signed by: Maribell Moses MD 10/29/2025 10:[address] [facility]
--- OUTSIDE RECORDS SUMMARY | 2025-10-29 11:56 | XMS_ITS | Clinical Summary ---
Author Organization [employer] Address [address] [facility] 7t [place] [address] Care Team Providers Care Laborer Pullet Farm Name Role Phone Asa, Joann MORALES Primary Care Provider [phone] Stephanie Maya MD Unavailable [phone] Grey Lance MD Unavailable [phone] Allergies No known active allergies Medications Polyvinyl Alcohol-Povidon e 5-6 MG/ML solution Administer 1 drop into affected eye(s) if needed in the morning, at noon, in the evening, and at bedtime (dry eye/disconfort) . 15 mL 5 Active Blood Pressure Monitoring (Blood Pressure Cuff) misc Use daily as prescribed 1 each 5 Active Active Problems Problem Noted Date Diagnosed Date Subconjunctival hemorrhage of left eye 5 Assessment & Plan (06/11/2025 12:22 PM EDT): Reassurance, there are no other red flags at this time. And asked patient to check BP at home and follow-up with RNs in 2 weeks, if elevated she will need to follow-up with PCP in 1 to 2 months, otherwise she can follow- up as scheduled. Patient will have complete eye evaluation in 2 weeks, he will address today's event at that visit Rx natural tears and reconsult as needed Overweight 12/29/2024 Overview (12/29/2024): Discussed weight, diet, exercise with patient in relation to health conditions. Used motivational interviewing to illicit change talk and established initial goals with patient. Assessment & Plan (12/29/2024 9:35 AM EST): Discussed weight, diet, exercise with patient in relation to health conditions. Used motivational interviewing to illicit change talk and established initial goals with patient. Advanced periodontitis 05/10/2024 Missing teeth, acquired 05/10/2024 [...] 09/18/25 -followed by Dr. Grey Lance of [facility] -dental home is [facility] -health care proxy given and filed 09/18/24 Assessment & Plan (09/18/2024 9:47 AM EDT): -next comprehensive annual evaluation due after 07/28/2024 -followed by Dr. Grey Lance of [facility] -dental home is [facility] -health care proxy given and filed 09/18/24 Assessment & Plan (07/28/2023 10:55 AM EDT): -next physical exam due after -eye care facilitated by [facility] with Dr Lindsay -dental home is [facility] Dyslipidemia 04/17/2013 Overview (12/29/2024): Lab Results [...] Problem Noted Date Diagnosed Date Resolved Date Exercise counseling 12/29/2024 08/02/20 Assessment & Plan (12/29/2024 9:35 AM EST): [...] in added sugars, saturated fat, and sodium. Dental calculus 05/10/2024 11/15/2024 Gingival bleeding 05/10/2024 11/15/2024 Acute gingival inflammation 05/10/2024 11/15/2024 Localized gingival recession 05/10/2024 11/15/2024 Halitosis 05/10/2024 11/15/2024 Spasm of cervical paraspinous muscle 03/15/2018 11/15/2024 Encounters Date Type Department Care Team Description 10/29/2025 Orders Only [facility] [address] [place] [address] Joann Bray MD 09/07/2025 Telephone [facility] [address] [place] [address] Joann Bray MD October Recalls from Last 3 Months Immunizations Immunization Administration Dates Next Due Influenza Injectable Quadriv [...] Sign Reading Time Taken Comments Blood Pressure 148/74 06/11/2025 10:31 AM EDT Pulse 72 06/11/2025 10:31 AM EDT Temperature 36.7 C (98.1 F) 06/11/2025 10:31 AM EDT Respiratory Rate 18 12/29/2024 9:08 AM EST Oxygen Saturation 98% 12/29/2024 9:08 AM EST Inhaled Oxygen Concentration - - Weight 74.8 kg (165 lb) 06/11/2025 10:31 AM EDT Height 160 cm (5' 3 ) 06/11/2025 10:31 AM EDT Body Mass Index 29.23 06/11/2025 10:31 AM EDT Plan of Treatment Health Maintenance Due Date Last Done Comments CT Colonography 1973 FIT DNA/Cologuard 1973 FIT 1973 FOBT 1975 Sigmoidoscopy 1975 Disability Screening 1973 Alcohol/Substance Use Screening 1985 Zoster Vaccines (1 of 2) 2023 Dental Oral Exam 11/10/2024 05/10/2024, , 07/14/2019, Additional history exists Dental Prophylaxis 11/10/2024 05/10/2024, 0 04/20/2022, 07/26/2019, Additional history exists Dental X-Ray: Bitewings 05/11/2025 05/10/20 24, 04/20/2022, 07/14/2019, Additional history exists COVID-19 Vaccine (3 - 2024- season) 2025 03/07/2021, 02/07/2021 Influenza Vaccine (#1) 2025 0, 11/03/2019, 11/18/2018, Additional history exists Depression Screening 09/18/2025 09/18/2024, 09/18/20 24 SDOH Screening 09/18/2025 09/18/2024 DTaP/Tdap/Td Vaccines (2 - Td or Tdap) 12/29/2025 10/08/2014 Postponed from 10/08/2024 (Patient Refused) Family Planning (PISQ) 12/29/2025 12/29/2024 Pneumococcal Vaccine: 50+ Years (1 of 1 - PCV) 12/29/2025 Postponed from 2023 (Patient Refused) Diagnostic Breast Imaging 04/29/20262024, 04/24/2025, 10/20/2024, Additional history exists Tobacco Screening 06/11/2026 06/11/2025 Dental X-Ray: Full Mouth 05/11/2027 024, 07/14/2019, 02/06/2014 Cervical Cancer Screening 12/29/2029 HPV/Cotest 12/29/2029 12/29/2024, 11/18/2018 Pap Smear 12/29/2029 12/29/2024, 11/03/2019 Colonoscopy 02/08/2033 02/08/2023 Colorectal Cancer Screening 02/08/2033 [...] patient's age to complete this topic Meningococcal B Vaccine Aged Out No l onger eligible based on patient's age to complete [...] Priority Date/Time Associated Diagnosis Comments BI MAMMOGRAM DIAGNOSTIC TOMOSYNTHESIS BILATERAL Routine 10/29/2025 9:57 AM EST HPV DNA, LOW/HIGH RISK Routine 10:00 AM EST PAP SMEAR Routine 12/29/2024 10:00 AM EST Cervical cancer screening Full PROPHYLAXIS - ADULT Routine 05/10/2024 10:00 AM EDT Advanced periodontitis Dental calculus Gingival bleeding Acute gingival inflammation Localized gingival recession Missing teeth, acquired INTRAORAL - COMPLETE SERIES OF RADIOGRAPHIC IMAGES Routine 05/10/2024 10:00 [...] HIV AB/AG Routine 06/30/2022 8:35 AM EDT from Last 3 Months or Most Recently Relevant to Health Maintenance Results * BI Mammogram Diagnostic Tomosynthesis Bilateral (10/29/2025 9:57 AM EST) Anatomical Region Laterality Modality Breast Bilateral Mammography 10/29/2025 9:57 AM EST Narrative 10/29/2025 10:39 AM EST [facility] [address] [place] [address] Mammography Report Signed Patient: Donna Nash#: [id number] : 1975 Acct:[id number] Age/Sex: 50 / F ADM Date: 10/29/25 Loc: HO.MAMMO Attending Dr: Joann Bray MD Ordering Physician: Joann Bray MD Results: 3P robably Benign Date of Service: 10/29/25 Follow Up: 12 month diagnos tic follow up Procedure(s): MM tomosynthesis diagnostic BI Accession Number(s): [id number] cc: Joann Bray MD Reason For Exam: LT BR 6M F/U ASYMM JANELLE ONLY DUE FOR YEARLY EXAMINATION(S): MM DIAGNOSTIC DIGITAL BREAST TOMOSYNTHESIS, BILATERAL CLINICAL INFORMATION: Today is the second 6-month follow-up of the left breast findings without suspicious sonographic correlate: -Asymmetry in the superior breast posterior depth on the MLO view, which was less conspicuous on the first 6-month follow-up in March 2025. -Asymmetry in the medial breast middle depth on the CC view COMPARISON: Comparison made to multiple prior, most recent left diagnostic mammogram on April 24, 2025, and most remote August 17, 2019. TECHNIQUE: Digital breast tomosynthesis is performed in both the mediolateral oblique and craniocaudal views along with computer-aided detection (CAD). Synthesized 2D images are generated from the tomosynthesis. FINDINGS: BREAST COMPOSITION: There are scattered areas of fibroglandular density. RIGHT BREAST: No significant masses, suspicious calcifications or other abnormalities are seen. LEFT BREAST: -Asymmetry in the upper breast posterior depth on the MLO view is similar to when first described in September 2024. -Asymmetry in the medial breast middle depth on the CC view is unchanged from at least September 2024. -No new masses, suspicious calcifications or other abnormalities are seen. MM/MM tomosynthesis diagnostic BI IMPRESSION: RIGHT BREAST: Negative, no mammographic evidence of malignancy. Normal interval follow-up is recommended in 12 months. LEFT BREAST: Asymmetry in the upper breast posterior depth on MLO view and asymmetry in the medial breast middle depth on the CC view are not significantly changed from recent studies. Probably benign. A one year follow-up is recommended as bilateral diagnostic mammogram. ASSESSMENT: BI-RADS: Category 3: Probably benign RECOMMENDATION: 12 month diagnostic follow up Results were provided to the patient at time of visit by the technologist. This patient's information was entered into a reminder system with a target due date for their next mammogram. Electronically signed by: Maribell Moses MD 10/29/2025 10:36 AM EST Dictated By: Maribell Moses MD Signed By: <Electronically signed by Maribell Moses MD in OV> 10/29/25 1036 DD/ 0957 TD/TT: 10/29/25 1011 Gasoline Pump Installer: Procedure Note Donotuseinterpreter, Image - 10/29/2025 [facility] [address] [place], [place] [address] Mammography Report Signed Patient: Hubert Nash R#: [id number] : 1975Acct:[id number] Age/Sex: 50 / FADM Date: 10/29/25 Loc: HO.MAMMO Attending Dr: Joann Bray MD Ordering Physician: Joann Bray MDResults: 3P robably Benign Date of Service: 10/29/25Follow Up: 12 month diagnos tic follow up Procedure(s): MM tomosynthesis diagnostic BI Accession Number(s): [id number] cc: Joann Bray MD Reason For Exam: LT BR 6M F/U ASYMM JANELLE ONLY DUE FOR YEARLY EXAMINATION(S): MM DIAGNOSTIC DIGITAL BREAST TOMOSYNTHESIS, BILATERAL CLINICAL INFORMATION: Today is the second 6-month follow-up of the left breast findings without suspicious sonographic correlate: -Asymmetry in the superior breast posterior depth on the MLO view, which was less conspicuous on the first 6-month follow-up in March 2025. -Asymmetry in the medial breast middle depth on the CC view COMPARISON: Comparison made to multiple prior, most recent left diagnostic mammogram on April 24, 2025, and most remote August 17, 2019. TECHNIQUE: Digital breast tomosynthesis is performed in both the mediolateral oblique and craniocaudal views along with computer-aided detection (CAD). Synthesized 2D images are generated from the tomosynthesis. FINDINGS: BREAST COMPOSITION: There are scattered areas of fibroglandular density. RIGHT BREAST: No significant masses, suspicious calcifications or other abnormalities are seen. LEFT BREAST: -Asymmetry in the upper breast posterior depth on the MLO view is similar to when first described in September 2024. -Asymmetry in the medial breast middle depth on the CC view is unchanged from at least September 2024. -No new masses, suspicious calcifications or other abnormalities are seen. MM/MM tomosynthesis diagnostic BI IMPRESSION: RIGHT BREAST: Negative, no mammographic evidence of malignancy. Normal interval follow-up is recommended in 12 months. LEFT BREAST: Asymmetry in the upper breast posterior depth on MLO view and asymmetry in the medial breast middle depth on the CC view are not significantly changed from recent studies. Probably benign. A one year follow-up is recommended as bilateral diagnostic mammogram. ASSESSMENT: BI-RADS: Category 3: Probably benign RECOMMENDATION: 12 month diagnostic follow up Results were provided to the patient at time of visit by the technologist. This patient's information was entered into a reminder system with a target due date for their next mammogram. Electronically signed by: Maribell Moses MD 10/29/2025 10:36 AM EST Dictated By: Maribell Moses MD Signed By: <Electronically signed by Maribell Moses MD in OV> 10/29/25 1036 DD/ 0957 TD/TT: 10/29/25 1011 Gasoline Pump Installer: Joann Bray MD IMG BI PROCEDURES Edited R esult - Final * HPV DNA, Low/High Risk (12/29/2024 10:00 AM EST) HPV High Risk Negative Negative [facility] HPV Genotype 16 Negative Negative [facility] HPV Genotype 18 Negative Negative [facility] Comment:HPV testing performe d at [facility] (CLIA#[id number]), [address] [place] [address].Testing for HPV was performed using the Jose ARY 6800system. The presence of HPV in the female genital tract isassociated with a number of diseases, including cervicalcarcinoma. The HPV DNA high risk pool tests for HPV 31, 33,35, 39, 45, 51, 52, 56, 58, 59, 66 and 68. The testing forHPV 16 and 18 genotypes has also been performed. A positiveresult indicates detection of nucleic acid sequences fromone or more subtypes, whereas a negative result indicatessuch sequences were not detected. 12/29/2024 10:0 0 AM EST 01/01/2025 8:55 AM EST Joann Bray MD LAB BLOOD ORDERABLES Final Result [facility] [address] [place] [phone] * Pap Smear (12/29/2024 10:00 AM EST) Swab 12/29/2024 10:0 0 AM EST 01/01/2025 8:55 AM EST Leonard [facility] - 01/09/2025 12:31 PM EST ----- ------- Name: Donna Nash Age/Sex: 49/F : 1975 Unit#: [id number] Attend Dr: Joann Bray MD Re12/29/24 Status: [facility] ----- ------- SPEC : [id number] RECD: 01/01/25 STATUS: PRISCILA SANDERS NUM: [id number] DALIA: 12/29/24-[address] [facility] [address]: Joann Bray MD ENTERED: 01/01/25 SP TYPE: Pap Smr OTHR DR: ORDERED: Pap Smear Interpretation Satisfactory for evaluation. Negative for intraepithelial lesion or malignancy. HPV High Risk: Negative HPV Genotyping 16: Negative HPV Genotyping 18: Negative Clinical Information LMP: Unknown date Previous PAP test: 2019, nilm, HPV neg Material Received ThinPrep-Cervical ----- ------- Signed (signature on file) Binu ASHA Pearson (ASCP) 01/09/25 1231 ----- ------- END OF REPORT Joann Bray MD LAB CYTOLOGY ORDERABLES Fi nal Result Performing Organization Address [facility]/ZIP Co de Phone Number [facility] [address] [place] [phone] * Hepatitis C Antibody with Reflex to HCV, RNA, Quantitative, Real-Time PCR (08/04/2023 8:57 AM EDT) Pathologist [facility] Hepatitis C Antibody Nonreactive Nonreactive [facility] Comment:Antibodies to HCV no t detected; does not exclude early acuteHCV infection. Blood Venous blood specimen / Unknown 08/04/2023 8:57 AM EDT 08/04/2023 8:57 AM EDT Joann Bray MD LAB BLOOD ORDERABLES Final Result Performing Organization Address [facility]/ZIP Co de Phone Number [facility] [address] [place], [place] [phone] * Hm Colonoscopy (02/08/2023) Pathologist [facility] Colonoscopy Normal Normal Al Valdez MD HEALTH MAINTENANCE Final Result * HIV AB/AG (06/30/2022 8:35 AM EDT) HIV AB/AG Nonreactive Nonreactive [facility] Comment: HIV-1 p24 Ag and/or HIV-1/HIV-2 Ab not detected. A test result that is nonreactive does not exclude the possibility of exposure to or infection with HIV-1 and/or HIV-2. Nonreactive results in this assay for individuals with prior exposure to HIV-1 and/or HIV-2 may be due to antigen and antibody levels that are below the limit of detection of this assay. The [employer] Prec[employer] Worker HIV Ag/Ab Combo assay result and supplemental assay results should be interpreted in conjunction with the patient's clinical presentation, history and other laboratory results. If the results are inconsistent with clinical evidence, additional testing is suggested to confirm the result. 06/30/2022 8:35 AM EDT us Joann Bray MD HISTORICAL/NON ORDERABLE L ABS Final Result [facility] Anywhere [address] from Last 3 Months or Most Recently Relevant to Health Maintenance [place] [place] [address] 2 Advance Directives Documents on File Type Date Recorded Patient Radiologist Diagnostic Expl anation Advance Directives and Living Will 09/18/2024 Health Care Proxy 09/18/24 Care Teams Laborer Pullet Farm Relationship Specialty Start Date End Date [place], MD Joann [address] [place] [phone] PCP - General Family Medicine 11/29/18 Stephanie Maya MD [address] 3rd [place] [address] Gastroenterology 11/15/24 Grey Lance MD [address] [place] [address] Ophthalmology 08/02/25
--- OUTSIDE RECORDS SUMMARY | 2025-10-29 11:56 | XMS_ITS | Encounter Summary ---
Author Organization [employer] Address [address] [facility] 7t [place] [address] Care Team Providers Care Color Maker Formulator Name Role Phone Joann Bray MD Primary Care Provider + [phone] Stephanie Maya MD Unavailable [phone] Grey Lance MD Unavailable [phone] Encounter Details Date Type Department Care Team (Latest Contact Info) Description 07/27/2019 Abstract [facility] CONVERSIONS Dental, Provider, DDS Social History Tobacco [...] on filedocumented in this encounter Care Teams Color Maker Formulator Relationship Specialty Start Date End Date Joann Bray MD [address] [place] [phone] PCP - General Family Medicine 11/29/18 Stephanie Maya MD [address]rd [place] [address] Gastroenterology 11/15/24 Grey Lance MD [address] [place] [address] Ophthalmology 08/02/25 documented as of this encounter
--- OUTSIDE RECORDS SUMMARY | 2025-10-29 11:57 | XMS_ITS | Encounter Summary ---
Author Organization [employer] Address [address] [facility] 7t [place] [address] Care Team Providers Care Umbrella Mender Name Role Phone Joann Bray MD Primary Care Provider [phone]- [phone] Stephanie Maya MD Unavailable [phone] Grey Lance MD Unavailable [phone] Encounter Details Date Type Department Care Team (Late st Contact Info) Description 07/27/2023 Abstract [facility] [address] [place] [address] Joann Bray MD [address] [place] [address] Social History Tobacco Use Types Packs/Day Years [...] on filedocumented in this encounter Care Teams Umbrella Mender Relationship Specialty Start Date End Date Joann Bray MD [address] [place] [address] PCP - General Family Medicine 11/29/18 Stephanie Maya MD [address] [place] [address] Gastroenterology 11/15/24 Grey Lance MD [address] [facility] [address] [facility] [address] [place] [address] Ophthalmology 08/02/25 documented as of this encounter
--- OUTSIDE RECORDS SUMMARY | 2025-10-29 11:57 | XMS_ITS | Encounter Summary ---
Author Organization [employer] Address [address] [facility] 7t [place] [address] Care Team Providers Care Adoption Social Worker Name Role Phone Joann Bray MD Primary Care Provider + [phone] Stephanie Maya MD Unavailable [phone] Grey Lance MD Unavailable [phone] Encounter Details Date Type Department Care Team (Latest Contact Info) Description 04/20/2022 Abstract [facility] CONVERSIONS Dental, Provider, DDS Social History Tobacco [...] on filedocumented in this encounter Care Teams Adoption Social Worker Relationship Specialty Start Date End Date Joann Bray MD [address] [place] [phone] PCP - General Family Medicine 11/29/18 Stephanie Maya MD [address]rd [place] [address] Gastroenterology 11/15/24 Grey Lance MD [address] [facility] [address] [place] [address] Ophthalmology 08/02/25 documented as of this encounter
--- OUTSIDE RECORDS SUMMARY | 2025-10-29 11:57 | XMS_ITS | Encounter Summary ---
Author Organization [employer] Address [address] [facility] 7t [place] [address] Care Team Providers Care Data Developer Name Role Phone Joann Bray MD Primary Care Provider [phone] Stephanie Maya MD Unavailable [phone] Grey Lance MD Unavailable [phone] Encounter Details Date Type Department Care Team (Late st Contact Info) Description 01/11/[address] [facility] MEDICINE [address] [place] [address] Joann Bray MD [address] [place] [address] Social History Tobacco Use Types Packs/Day Years [...] on filedocumented in this encounter Care Teams Data Developer Relationship Specialty Start Date End Date Joann Bray MD [address] [place] [address] PCP - General Family Medicine 11/29/18 Stephanie Maya MD [address]rd [place] [address] Gastroenterology 11/15/24 Grey Lance MD [address] [place] [address] Ophthalmology 08/02/25 documented as of this encounter
--- OUTSIDE RECORDS SUMMARY | 2025-10-29 11:57 | XMS_ITS | Encounter Summary ---
Author Organization [employer] Address [address] [facility] 7t [place] [address] Care Team Providers Care Dynamometer Mechanic Name Role Phone Joann Bray MD Primary Care Provider +- [phone] Stephanie Maya MD Unavailable [phone] Grey Lance MD Unavailable [phone] Encounter Details Date Type Department Care Team (Late st Contact Info) Description 07/27/2023 Abstract [facility] [address] [place] [address] Joann Bray MD [address] [place] [address] Social History Tobacco Use Types Packs/Day Years [...] on filedocumented in this encounter Care Teams Dynamometer Mechanic Relationship Specialty Start Date End Date Joann Bray MD [address] [place] [address] PCP - General Family Medicine 11/29/18 Stephanie Maya MD [address] [place] [address] Gastroenterology 11/15/24 Grey Lance MD [address] [facility] [address] [facility] [address] [place] [address] Ophthalmology 08/02/25 documented as of this encounter
--- OUTSIDE RECORDS SUMMARY | 2025-10-29 11:57 | XMS_ITS | Encounter Summary ---
Author Organization [employer] Address [address] 7t [place] [address] Care Team Providers Care Sales Promoter Name Role Phone Joann Bray MD Primary Care Provider +1- [phone] Stephanie Maya MD Unavailable [phone] Grey Lance MD Unavailable [phone] Encounter Details Date Type Department Care Team (Late st Contact Info) Description 10/29/[address] [facility] MEDICINE [address] [place] [address] Joann Bray MD 230 [place], [place] [phone] Social History Tobacco Use Types Packs/Day Years [...] TOMOSYNTHESIS BILATERAL Routine 10/29/2025 9:57 AM EST documented in this encounter Results * BI Mammogram Diagnostic Tomosynthesis Bilateral (10/29/2025 9:57 AM EST) Anatomical Region Laterality Modality Breast Bilateral Mammography 10/29/2025 9:57 AM EST Narrative 10/29/2025 10:39 AM EST [facility]'s [address] [place] [address] Mammography Report Signed Patient: Donna Nash Jethro#: [id number] : 1975 Acct:[id number] Age/Sex: 50 / F ADM Date: 10/29/25 Loc: HO.MAMMO Attending Dr: Joann Bray MD Ordering Physician: Joann Bray MD Results: 3P robably Benign Date of Service: 10/29/25 Follow Up: 12 month diagnos tic follow up Procedure(s): MM tomosynthesis diagnostic BI Accession Number(s): [id number] cc: Joann Bray MD Reason For Exam: [...] 10/29/25 1036 DD/ 0957 TD/TT: 10/29/25 1011 Eclectic Doctor: Procedure Note Donotuseinterpreter, Image - 10/29/2025 [facility] [address] [place] [address] [place] [address] Mammography Report Signed Patient: Hubert Nash#: [id number] : 1975Acct:[id number] Age/Sex: 50 / FADM Date: 10/29/25 Loc: HO.MAMMO Attending Dr: Joann Bray MD Ordering Physician: Joann Bray MDResults: 3P robably Benign Date of Service: 10/29/25Follow Up: 12 month diagnos tic follow up Procedure(s): MM tomosynthesis diagnostic BI Accession Number(s): [id number] cc: Joann Bray MD Reason For Exam: [...] Maribell Moses MD 10/29/2025 10:36 AM EST RP Dictated By: Maribell Moses MD Signed By: <Electronically signed by Maribell Moses MD in OV> 10/29/25 1036 DD/ 0957 TD/TT: 10/29/25 1011 Eclectic Doctor: us Joann Bray MD IMG BI PROCEDURES Edited R esult - Final documented in this encounter Visit Diagnoses Not on filedocumented in this encounter Additional Health Concerns Assessment Noted Time PHQ-9 Depression Total Score: 1 09/18/20 24 10:02 AM EDT documented as of this encounter Care Teams Sales Promoter Relationship Specialty Start Date End Date Joann Bray MD [address] [place] [address] PCP - General Family Medicine 11/29/18 Stephanie Maya MD [address]rd [place] [address] Gastroenterology 11/15/24 Grey Lance MD [address] [place] [address] Ophthalmology 08/02/25 documented as of this encounter
--- OUTSIDE RECORDS SUMMARY | 2025-10-29 11:57 | XMS_ITS | Encounter Summary ---
Author Organization [employer] Address [address] [place] [address] 7t [place] [address] Care Team Providers Care Core Stripper Name Role Phone Joann Bray MD Primary Care Provider [phone]- [phone] Stephanie Maya MD Unavailable [phone] Grey Lance MD Unavailable [phone] Encounter Details Date Type Department Care Team (Late st Contact Info) Description 02/10/2023 Abstract [facility] MEDICINE 230 [place] [address] Joann Bray MD 230 [place] [address] Social History Tobacco Use Types Packs/Day Years [...] on filedocumented in this encounter Care Teams Core Stripper Relationship Specialty Start Date End Date Joann Bray MD 230 [place] [address] PCP - General Family Medicine 11/29/18 Stephanie Maya MD [address] 3rd [place] [address] Gastroenterology 11/15/24 Grey Lance MD [address] [place] [address] Ophthalmology 08/02/25 documented as of this encounter
== END 2025-10-29 09:55 | disposition home or self-care (01) ==
LOC: HO.MAMMO 09:54
PROVIDERS: Visit Provider Family Medicine
DX: N64.89 Other specified disorders of breast (principal)
CPT/HCPCS: 77062; 77066

== ENCOUNTER → 2025-10-29 10:00 | Outpatient (BNV) | payer OTHER, SELFPAY | PROVIDERS: Visit Provider Radiology Body Imaging | DX: R92.8 Other abnormal and inconclusive findings on diagnostic imaging of breast (principal) | CPT/HCPCS: 77062; 77066 ==

== ENCOUNTER 2025-11-01 08:04 | Outpatient (REF) | payer OTHER, SELFPAY ==
--- OUTSIDE RECORDS SUMMARY | 2025-11-01 08:13 | XMS_ITS | Encounter Summary ---
Author Organization [employer] Address [address] [facility] 7t [place] [address] Care Team Providers Care Traffic Recorder Name Role Phone Joann Bray MD Primary Care Provider + [phone] Stephanie Maya MD Unavailable [phone] Grey Lance MD Unavailable [phone] Encounter Details Date Type Department Care Team (Latest Contact Info) Description 04/20/2022 Abstract [facility] Dental, Provider, DDS Social History Tobacco [...] on filedocumented in this encounter Care Teams Traffic Recorder Relationship Specialty Start Date End Date Joann Bray MD [address] [place] [address] PCP - General Family Medicine 11/29/18 Stephanie Maya MD [address] 3rd [place] [address] Gastroenterology 11/15/24 Grey Lance MD [address] [facility] [address] [place] [address] Ophthalmology 08/02/25 documented as of this encounter
--- OUTSIDE RECORDS SUMMARY | 2025-11-01 08:13 | XMS_ITS | Encounter Summary ---
Author Organization [employer] Address [address] [facility] 7t [place] [address] Care Team Providers Care Glass Curvature Gauger Name Role Phone Joann Bray MD Primary Care Provider +- [phone] Stephanie Maya MD Unavailable [phone] Grey Lance MD Unavailable [phone] Encounter Details Date Type Department Care Team (Late st Contact Info) Description 07/27/2023 Abstract [facility] MEDICINE 230 [place] [address] Joann Bray MD 230 [place] [address] Social History Tobacco Use Types Packs/Day Years [...] on filedocumented in this encounter Care Teams Glass Curvature Gauger Relationship Specialty Start Date End Date Joann Bray MD 230 [place] [address] PCP - General Family Medicine 11/29/[address] Stephanie Maya MD [address]rd [place] [address] Gastroenterology 11/15/24 Grey Lance MD [address] [facility] [address] [facility] [address] [place] [address] Ophthalmology 08/02/25 documented as of this encounter
--- OUTSIDE RECORDS SUMMARY | 2025-11-01 08:13 | XMS_ITS | Encounter Summary ---
Author Organization [employer] Address [address] [facility] 7t [place] [address] Care Team Providers Care Music Adapter Name Role Phone Joann Bray MD Primary Care Provider [phone]- [phone] Stephanie Maya MD Unavailable [phone] Grey Lance MD Unavailable [phone] Encounter Details Date Type Department Care Team (Late st Contact Info) Description 01/11/2023 Abstract [facility] MEDICINE 230 [place] [address] Joann Bray MD 230 [place] [address] Social History Tobacco Use Types Packs/Day Years [...] on filedocumented in this encounter Care Teams Music Adapter Relationship Specialty Start Date End Date Joann Bray MD 230 [place] [address] PCP - General Family Medicine 11/29/18 Stephanie Maya MD [address] 3rd [place] [address] Gastroenterology 11/15/24 Grey Lance MD [address] [place] [address] Ophthalmology 08/02/25 documented as of this encounter
--- OUTSIDE RECORDS SUMMARY | 2025-11-01 08:13 | XMS_ITS | Encounter Summary ---
Author Organization [employer] Address [address] [place] [address] 7t [place] [address] Care Team Providers Care Waste Reduction Coordinator Name Role Phone Joann Bray MD Primary Care Provider +1- [phone] Stephanie Maya MD Unavailable [phone] Grey Lance MD Unavailable [phone] Encounter Details Date Type Department Care Team (Late st Contact Info) Description 02/10/[address] [facility] MEDICINE 230 [place] [address] Joann Bray MD 230 [place] [address] Social History Tobacco Use Types Packs/Day Years [...] on filedocumented in this encounter Care Teams Waste Reduction Coordinator Relationship Specialty Start Date End Date Joann Bray MD 230 [place] [address] PCP - General Family Medicine 11/29/18 Stephanie Maya MD [address] 3rd [place] [address] Gastroenterology 11/15/24 Grey Lance MD [address] [place] [address] Ophthalmology 08/02/25 documented as of this encounter
--- OUTSIDE RECORDS SUMMARY | 2025-11-01 08:13 | XMS_ITS | Clinical Summary ---
Author Organization [employer] Address [address] [facility] 7t [place] [address] Care Team Providers Care Drilling Inspector Name Role Phone Asa, Joann MORALES Primary Care Provider +1- [phone] Stephanie Maya MD Unavailable [phone] Grey Lance MD Unavailable [phone] Allergies No known active allergies Medications [...] 09/18/25 -followed by Dr. Grey Lance of [facility] -dental home is [facility] -health care proxy given and filed 09/18/24 Assessment & Plan (09/18/2024 9:47 AM EDT): -next comprehensive annual evaluation due after 07/28/2024 -followed by Dr. Grey Lance of [facility] -dental home is [facility] -health care proxy given and filed 09/18/24 Assessment & Plan (07/28/2023 10:55 AM EDT): -next physical exam due after -eye care facilitated by [facility] with Dr Lindsay -dental home is [facility] Dyslipidemia 04/17/2013 Overview (12/29/2024): Lab Results [...] Department Care Team Description 10/29/2025 Orders Only [facility] MEDICINE 230 [place] [address] Joann Bray MD 09/07/2025 Telephone [facility] MEDICINE 230 [place] [address] Joann Bray MD October Recalls from Last [...] AM EST Narrative 10/29/2025 10:39 AM EST [facility]'s [address] [place] [address] Mammography Report Signed Patient: Donna Nash#: [id number] : 1975 Acct:[id number] Age/Sex: 50 / F ADM Date: 10/29/25 Loc: HO.MAMMO Attending Dr: Joann Bray MD Ordering Physician: Joann Bray MD Results: 3P robably Benign Date of Service: 10/29/25 Follow Up: 12 month diagnos tic follow up Procedure(s): MM tomosynthesis diagnostic BI Accession Number(s): [id number] cc: Joann Bray MD Reason For Exam: [...] 10/29/25 1036 DD/ 0957 TD/TT: 10/29/25 1011 Physician Practice Consultant: Procedure Note Donotuseinterpreter, Image - 10/29/2025 [facility] [address] [place], [place] [address] Mammography Report Signed Patient: Hubert Nash R#: [id number] : 1975Acct:[id number] Age/Sex: 50 / FADM Date: 10/29/25 Loc: HO.MAMMO Attending Dr: Joann Bray MD Ordering Physician: Joann Bray MDResults: 3P robably Benign Date of Service: 10/29/25Follow Up: 12 month diagnos tic follow up Procedure(s): MM tomosynthesis diagnostic BI Accession Number(s): [id number] cc: Joann Bray MD Reason For Exam: [...] 10/29/25 1036 DD/ 0957 TD/TT: 10/29/25 1011 Physician Practice Consultant: Joann Bray MD IMG BI PROCEDURES Edited R esult - Final * HPV DNA, Low/High Risk (12/29/2024 10:00 AM EST) HPV High Risk Negative Negative [facility] HPV Genotype 16 Negative Negative [facility] HPV Genotype 18 Negative Negative [facility] Comment:HPV testing performe d at [facility] (CLIA#[id number]), [address] [place] [address].Testing for HPV was performed using the Jose [...] Bray MD LAB BLOOD ORDERABLES Final Result [facility] [address] [place] [phone] * Pap Smear (12/29/2024 10:00 AM EST) Swab 12/29/2024 10:0 0 AM EST 01/01/2025 8:55 AM EST Leonard [facility] - 01/09/2025 12:31 PM EST ----- ------- Name: Donna Nash Age/Sex: 49/F : 1975 Unit#: [id number] Attend Dr: Joann Bray MD Re12/29/24 Status: [facility] Disch: ----- ------- SPEC : [id number] RECD: 01/01/25 STATUS: PRISCILA SANDERS NUM: [id number] DALIA: 12/29/24-[address] [facility] [address]: Joann Bray MD ENTERED: 01/01/25 [...] ORDERABLES Fi nal Result Performing Organization Address [facility]/ZIP Co de Phone Number [facility] [address] [place] [phone] * Hepatitis C Antibody with Reflex to HCV, RNA, Quantitative, Real-Time PCR (08/04/2023 8:57 AM EDT) Pathologist [facility] Hepatitis C Antibody Nonreactive Nonreactive [facility] Comment:Antibodies to HCV no t detected; does not exclude early acuteHCV infection. Blood Venous blood specimen / Unknown 08/04/2023 8:57 AM EDT 08/04/2023 8:57 AM EDT Joann Bray MD LAB BLOOD ORDERABLES Final Result Performing Organization Address [facility]/ZIP Co de Phone Number [facility] [address] [place], [place] [phone] * Hm Colonoscopy (02/08/2023) Pathologist [facility] Colonoscopy Normal Normal Al Valdez MD HEALTH MAINTENANCE Final Result * HIV AB/AG (06/30/2022 8:35 AM EDT) HIV AB/AG Nonreactive Nonreactive [facility] Comment: HIV-1 p24 Ag and/or [...] of detection of this assay. The [employer] Still Operator HIV Ag/Ab Combo assay result and supplemental assay results should be interpreted in conjunction with the patient's clinical presentation, history and other laboratory results. If the results are inconsistent with clinical evidence, additional testing is suggested to confirm the result. 06/30/2022 8:35 AM EDT us Joann Bray MD HISTORICAL/NON ORDERABLE L ABS Final Result [facility] Anywhere [address] from Last 3 Months or Most Recently Relevant to Health Maintenance [place] [address] [place] [address] 2 Advance Directives Documents on File Type Date Recorded Patient Ironmolder Expl anation Advance Directives and Living Will 09/18/2024 Health Care Proxy 09/18/24 Care Teams Drilling Inspector Relationship Specialty Start Date End Date [place], MD Joann [address] [place] [address] PCP - General Family Medicine 11/29/18 Stephanie Maya MD [address] 3rd [place] [address] Gastroenterology 11/15/24 Grey Lance MD [address] [place] [address] Ophthalmology 08/02/25
--- OUTSIDE RECORDS SUMMARY | 2025-11-01 08:13 | XMS_ITS | Encounter Summary ---
Author Organization [employer] Address [address] [facility] 7t [place] [address] Care Team Providers Care Rn Or Lpn Name Role Phone Joann Bray MD Primary Care Provider +- [phone] Stephanie Maya MD Unavailable [phone] Grey Lance MD Unavailable [phone] Encounter Details Date Type Department Care Team (Late st Contact Info) Description 07/27/2023 Abstract [facility] MEDICINE [address] [place] [address] Joann Bray MD 230 [place] [address] Social History Tobacco Use Types Packs/Day Years [...] on filedocumented in this encounter Care Teams Rn Or Lpn Relationship Specialty Start Date End Date Joann Bray MD 230 [place] [address] PCP - General Family Medicine 11/29/18 Stephanie Maya MD [address]rd [place] [address] Gastroenterology 11/15/24 Grey Lance MD [address] [facility] [address] [facility] [address] [place] [address] Ophthalmology 08/02/25 documented as of this encounter
--- OUTSIDE RECORDS SUMMARY | 2025-11-01 08:13 | XMS_ITS | Encounter Summary ---
Author Organization [employer] Address [address] [facility] 7t [place] [address] Care Team Providers Care Sales Assistant Institutional Sales Name Role Phone Joann Bray MD Primary Care Provider + [phone] Stephanie Maya MD Unavailable [phone] Grey Lance MD Unavailable [phone] Encounter Details Date Type Department Care Team (Latest Contact Info) Description 07/27/2019 Abstract [facility] CONVERSIONS Dental, Provider, DDS Social [...] on filedocumented in this encounter Care Teams Sales Assistant Institutional Sales Relationship Specialty Start Date End Date Joann Bray MD [address] [place] [address] PCP - General Family Medicine 11/29/18 Stephanie Maya MD [address] 3rd [place] [address] Gastroenterology 11/15/24 Grey Lance MD [address] [place] [address] Ophthalmology 08/02/25 documented as of this encounter
--- OUTSIDE RECORDS SUMMARY | 2025-11-01 08:13 | XMS_ITS | Encounter Summary ---
Author Organization [employer] Address [address] [facility] [address] 7t [place] [address] Care Team Providers Care Residential Remodeling Subcontractor Name Role Phone Joann Bray MD Primary Care Provider [phone]- [phone] Stephanie Maya MD Unavailable [phone] Grey Lance MD Unavailable [phone] Encounter Details Date Type Department Care Team (Late st Contact Info) Description 10/29/2025 Orders Only [facility] MEDICINE 230 [place] [address] Joann Bray MD 230 [place], [place] [phone] Social History Tobacco Use Types Packs/Day Years [...] AM EST Narrative 10/29/2025 10:39 AM EST [facility]'s [address] [place] [address] Mammography Report Signed Patient: Donna Nash Jethro#: [id number] : 1975 Acct:[id number] Age/Sex: 50 / F ADM Date: 10/29/25 Loc: HO.MAMMO Attending Dr: Joann Bray MD Ordering Physician: Joann Bray MD Results: 3P robably Benign Date of Service: 10/29/25 Follow Up: 12 month diagnos tic follow up Procedure(s): MM tomosynthesis diagnostic BI Accession Number(s): [id number] cc: Joann Bray MD Reason For Exam: [...] 10/29/25 1036 DD/ 0957 TD/TT: 10/29/25 1011 Windows Deployment Technician: Procedure Note Donotuseinterpreter, Image - 10/29/2025 [facility] [address] [place] [address] [place] [address] Mammography Report Signed Patient: Hubert Nash#: [id number] : 1975Acct:[id number] Age/Sex: 50 / FADM Date: 10/29/25 Loc: HO.MAMMO Attending Dr: Joann Bray MD Ordering Physician: Joann Bray MDResults: 3P robably Benign Date of Service: 10/29/25Follow Up: 12 month diagnos tic follow up Procedure(s): MM tomosynthesis diagnostic BI Accession Number(s): [id number] cc: Joann Bray MD Reason For Exam: [...] 10/29/25 1036 DD/ 0957 TD/TT: 10/29/25 1011 Windows Deployment Technician: us Joann Bray MD IMG BI PROCEDURES Edited R esult - Final documented in this encounter Visit Diagnoses Not on filedocumented in this encounter Additional Health Concerns Assessment Noted Time PHQ-9 Depression Total Score: 1 09/18/20 24 10:02 AM EDT documented as of this encounter Care Teams Residential Remodeling Subcontractor Relationship Specialty Start Date End Date Joann Bray MD [address] [place] [address] PCP - General Family Medicine 11/29/18 Stephanie Maya MD [address] 3rd [place] [address] Gastroenterology 11/15/24 Grey Lance MD [address] [place] [address] Ophthalmology 08/02/25 documented as of this encounter
[2025-11-01 12:18] LABS: Cholesterol 279 mg/dL (<200); HDL Cholesterol 60 mg/dL (>40); Triglycerides 319 mg/dL (<150)
[2025-11-03 21:48] LABS: TS Negative Control Passed; TS Panel A 0; TS Panel B 0; TS Positive Control Passed; TSpotTB Negative (Negative)
== END 2025-11-01 08:05 | disposition home or self-care (01) ==
LOC: HO.HHCL 08:04
PROVIDERS: PCP Family Medicine; Visit Provider Family Medicine
DX: Z11.1 Encounter for screening for respiratory tuberculosis (principal); E78.5 Hyperlipidemia, unspecified
CPT/HCPCS: 36415; 80061; 86481